=== PATIENT | female | born 1995 ===

== ENCOUNTER 2020-08-10 18:56 | Outpatient (REF) | payer MEDICAID, SELFPAY ==
--- NOTE | ~2020-08-10 | MR_ITS ---
EXAMINATION: MR LUMBAR SPINE WITHOUT CONTRAST CLINICAL INFORMATION: Lower back pain with bilateral leg pain and weakness. Left-sided sciatica. COMPARISON: Lumbar spine radiographs dated 09/10/2019. TECHNIQUE: MRI of the lumbar spine was obtained using routine sequences without contrast. FINDINGS: VERTEBRAL BODIES AND PARASPINAL STRUCTURES: Normal vertebral body alignment. The lumbar lordosis is maintained. No acute fracture or subluxation. No loss of vertebral body height. Loss of intervertebral disc height with disc desiccation at L5-S1. The remaining intervertebral discs appear well-hydrated. No abnormal marrow signal. The visualized paraspinal soft tissues are unremarkable. CONUS MEDULLARIS AND CAUDA EQUINA: Normal, terminating at the level of the superior endplate of L2. SPINAL LEVELS: T12-L1: No significant disc bulge. No central canal or neural foraminal stenosis. L1-L2: No significant disc bulge. No central canal or neural foraminal stenosis. L2-L3: No significant disc bulge. No central canal or neural foraminal stenosis. L3-L4: No significant disc bulge. Bilateral facet arthropathy. No central canal or neural foraminal stenosis. L4-L5: Shallow left subarticular disc protrusion and bilateral facet arthropathy without significant central canal or neural foraminal stenosis. L5-S1: Broad-based disc bulge with a shallow left paracentral disc protrusion which abuts the traversing left S1 nerve root within the lateral recess. Bilateral facet arthropathy with mild left neural foraminal stenosis. MR/MR lumbar spine wo con IMPRESSION: 1. Degenerative disc disease at L5-S1 with a broad-based disc bulge and shallow left paracentral disc protrusion which abuts the traversing left S1 nerve root within the lateral recess. Bilateral facet arthropathy with mild left neural foraminal stenosis. 2. L4-L5 shallow left subarticular disc protrusion and bilateral facet arthropathy without significant central canal or neural foraminal stenosis. 3. L3-L4 bilateral facet arthropathy without central canal or neural foraminal stenosis.
== END 2020-08-10 18:57 | disposition home or self-care (01) ==
LOC: HO.MRI 18:56
PROVIDERS: PCP Internal Medicine; Visit Provider Internal Medicine
DX: M54.42 Lumbago with sciatica, left side (principal)
CPT/HCPCS: 72148

== ENCOUNTER 2020-09-02 07:52 | Inpatient (IN) | payer MEDICAID, SELFPAY ==
--- NOTE | ~2020-09-02 | US_ITS ---
EXAMINATION: ULTRASOUND PELVIC, COMPLETE CLINICAL INFORMATION: Abdominal pain COMPARISON: CT of the abdomen and pelvis 09/02/2020 TECHNIQUE: Transabdominal and transvaginal imaging was performed. Transvaginal imaging was performed for further evaluation of the endometrium and adnexa. FINDINGS: The uterus is anteverted and is of normal size and echogenicity measuring 7.9 x 3.8 x 5.4 cm. A regular homogeneous endometrium is identified measuring 0.9 cm. There is a heterogeneous 1.3 x 2.1 x 1.8 cm heterogeneously hypoechoic lesion adjacent to the right aspect of the uterine fundus, also seen on the prior CT (series 5, image [address] 09/02/2020), that likely represents a subserosal fibroid. Both ovaries are of normal size and echogenicity. The right ovary measures 2.3 x 2.9 x 2 cm for a volume of 7 mL. The left ovary measures 3.7 x 1.4 x 2.3 cm for a volume of 6.1 mL. There is a small amount of pelvic free fluid. US/US transvaginal IMPRESSION: 2.1 cm soft tissue lesion adjacent to the right aspect of the uterine fundus, likely labor relations representative of an exophytic subserosal fibroid. Normal appearance of the bilateral ovaries. Trace free fluid in the pelvis, likely physiologic.
--- NOTE | ~2020-09-02 | US_ITS ---
EXAMINATION: ULTRASOUND PELVIC, COMPLETE CLINICAL INFORMATION: Abdominal pain COMPARISON: CT of the abdomen and pelvis 09/02/2020 TECHNIQUE: Transabdominal and transvaginal imaging was performed. Transvaginal imaging was performed for further evaluation of the endometrium and adnexa. FINDINGS: The uterus is anteverted and is of normal size and echogenicity measuring 7.9 x 3.8 x 5.4 cm. A regular homogeneous endometrium is identified measuring 0.9 cm. There is a heterogeneous 1.3 x 2.1 x 1.8 cm heterogeneously hypoechoic lesion adjacent to the right aspect of the uterine fundus, also seen on the prior CT (series 5, image [address] 09/02/2020), that likely represents a subserosal fibroid. Both ovaries are of normal size and echogenicity. The right ovary measures 2.3 x 2.9 x 2 cm for a volume of 7 mL. The left ovary measures 3.7 x 1.4 x 2.3 cm for a volume of 6.1 mL. There is a small amount of pelvic free fluid. US/US pelvic complete IMPRESSION: 2.1 cm soft tissue lesion adjacent to the right aspect of the uterine fundus, likely factory representative of an exophytic subserosal fibroid. Normal appearance of the bilateral ovaries. Trace free fluid in the pelvis, likely physiologic.
--- NOTE | ~2020-09-02 | CT_ITS ---
EXAMINATION: CT abdomen pelvis w con CLINICAL INFORMATION: Reason for Exam RUQ, RLQ pain rule out biliary disease, appendicitis COMPARISON: No prior CT available for comparison. TECHNIQUE: Multidetector volumetric imaging was performed from the superior aspect of the liver through the pubic symphysis 85 mL of Omnipaque 350 injected. Sagittal and coronal reformatted images were obtained on the technologist's workstation. This CT examination was performed using dose optimization techniques as appropriate, variously including the following: *Automated exposure control *Adjustment of mA and/or kV according to patient size (this includes techniques or standardized protocols for targeted exams where dose is matched to indication/reason for exam; i.e. extremities or head) *Use of iterative reconstruction technique DLP: 374 mGy-cm FINDINGS: LOWER THORAX: Included lung bases are clear. HEPATOBILIARY: Hypodense focal area of the left lobe of the liver segment 4 adjacent to the falciform ligament, the location is common for focal fat deposition. GALLBLADDER: Gallbladder unremarkable. SPLEEN: Spleen is normal in size. PANCREAS: No focal mass or ductal dilatation. STOMACH AND GASTROINTESTINAL TRACT: Stomach is grossly unremarkable. No CT evidence of bowel obstruction. Appendix difficult to visualize due to crowding of bowel loops and possibly of intraperitoneal fat, there is a blind loop structure in the right lower quadrant which could be a dilated appendix, there is a free fluid in the pelvis and mild fat stranding, cannot rule out appendicitis. Adjacent borderline dilated the small bowel loops might be regional ileus. ADRENALS: No adrenal nodules. KIDNEYS/URETERS: No hydronephrosis, stones or solid mass lesions. URINARY BLADDER: Partially decompressed. PELVIC VISCERA: Unremarkable PERITONEUM: There is no free air, there is a fluid in the dependent portion of the pelvis. LYMPH NODES: No lymphadenopathy. VASCULAR:Abdominal aorta normal in size, no aneurysm found. BONES, ABDOMINAL WALL AND SOFT TISSUES: Age-appropriate changes of the spine and skeletal system, no destructive osteolytic or osteosclerotic bone lesion found CT/CT abdomen pelvis w con IMPRESSION: CT is abnormal, appendix difficult to visualize with certainty due to crowding of bowel loops and paucity of intraperitoneal fat, there is however suspicion for mildly dilated appendix, this combined with the presence of free fluid in the pelvis, mild fat stranding and few borderline dilated small bowel loops could be regional ileus, raising concern, cannot rule out appendicitis. SURGICAL EVALUATION IS WARRANTED. (Referring physician staff is being called, to be alerted of the above findings and recommendations.) AJ
--- NOTE | ~2020-09-02 | US_ITS ---
EXAMINATION: US ABDOMEN COMPLETE CLINICAL INFORMATION: Upper abdominal pain. COMPARISON: CT abdomen and pelvis with contrast dated 01/30/2021. TECHNIQUE: Real-time imaging of the abdominal viscera. FINDINGS: PANCREAS: Not well visualized due to bowel gas. ABDOMINAL AORTA: The proximal, mid, and distal segments are normal in caliber. INFERIOR VENA CAVA: Visualized portions are normal. LIVER: Normal. The liver is normal in size. The liver contour is normal. Parenchymal echogenicity is normal. No focal hepatic lesion. There is no intrahepatic biliary duct dilatation seen. GALLBLADDER: Normal. The gallbladder is physiologically distended without evidence of stones, sludge, wall thickening or pericholecystic fluid. COMMON BILE DUCT: Normal in caliber measuring 0.3 cm in diameter. RIGHT KIDNEY: Normal. No hydronephrosis. No renal calculi or focal parenchymal lesions. The kidney measures 11.2 cm in maximum dimension. LEFT KIDNEY: Normal. No hydronephrosis. No renal calculi or focal parenchymal lesions. The kidney measures 10.6 cm in maximum dimension. SPLEEN: Normal. The spleen measures 9.6 cm in maximum dimension. FREE FLUID: None. US/US abdomen complete IMPRESSION: Limited visualization of the pancreas otherwise unremarkable exam.
--- NOTE | ~2020-09-02 | XR_ITS ---
EXAMINATION: XR CHEST CLINICAL INFORMATION: Right-sided pleuritic chest pain. Rule out pneumonia. COMPARISON: 06/11/2019 TECHNIQUE: 2 views of the chest were obtained. FINDINGS: The cardiomediastinal silhouette is within normal limits. The lungs are well expanded. There is no focal consolidation, edema, or effusion. No pneumothorax. No acute osseous abnormality. XR/XR chest 2V IMPRESSION: No evidence of acute process.
[2020-09-02 08:11] VITALS: BP 110/64; PULSE 91; RESP 18; TEMP 37.1; O2SAT 100; BMI 22.6
--- NOTE | 2020-09-02 08:28 | ED.GENADULT ---
HPI - General Adult General Chief complaint: Abdominal Pain Stated complaint: abd pain Time Seen by Provider: 09/02/20 08:10 Source: patient Mode of arrival: ambulatory Limitations: no limitations History of Present Illness HPI narrative: 25-year-old female who presents emergency department for evaluation of right-sided abdominal pain. Patient states that approximately 2 weeks prior she had a very bad menstrual period with severe cramping and more bleeding than usual. She states that while she was having her menstrual. She developed right upper quadrant abdominal pain. She states that her cramping pain improved but her right upper quadrant pain has persisted. She describes the pain as a constant, sharp pain as if someone punched her in her right upper quadrant area. She states the pain gets worse if she walks or she takes a deep breath in. Pain does not change with food. She states the pain is 10/10. She denied associated nausea or vomiting. She denied fever. She states that over the last 1-2 days she has had chills and sweats at night. The patient does have tramadol at home for back pain and she took tramadol with no relief of her abdominal pain. The patient denies any surgical history. She has been having lower back pain and had an MRI on 08/10/2020 which revealed bulging discs at L4-L5 and L5-S1 with some arthritic changes. She states that she spoke to a neurosurgeon and the neurosurgeon's opinion was that these were non operable discs and the patient should follow-up with her PCP for further back pain management. The patient states that her back pain has significantly improved. Related Data Allergies Allergy/AdvReac Type Severity Reaction Status Date / Time aloe vera [Flexall] Allergy Unknown Verified 06/11/19 00:00 cyclobenzaprine Allergy Unknown RASH Unverified 03/23/20 19:43 [From FLEXERIL] menthol [Flexall] Allergy Unknown Verified 06/11/19 00:00 penicillin V Allergy Unknown Verified 06/11/19 00:00 Penicillins [PENICILLINS] Allergy Unknown RASH Unverified 03/23/20 19:43 vitamin E (d-alpha Allergy Unknown Verified 06/11/19 00:00 tocopherol) [Flexall] Review of Systems Review of Systems: Yes all other systems are reviewed and are negative Neurologic: Reports Abnormal speech present [facility] Past Medical History [facility] Narrative: GERD, asthma, hiatal hernia, back pain with non operable L4-L5 and L5-S1 disc bulging. The patient does smoke a quarter pack of cigarettes per day x9 years, she drinks alcohol occasionally, she smokes marijuana 2 to 3 times a day. She states that she is treating a mood disorder with her marijuana use. Medical History (Updated 09/02/20 @ 08:16 by Taylor Polanco) Acid reflux Asthma Bulging disc Hiatal hernia Social History Social History Smoking Status: Current every day smoker Use of substances other than those prescribed or required for medical reasons: Yes Substance Use Type: Marijuana Advance Directives: No Advance Directives Information Provided: No Physical Exam Vital Signs: Vital Signs: Last Vital Signs Temp 98.1 F 09/02/20 09:55 Pulse 73 09/02/20 09:55 Resp 16 09/02/20 09:55 BP 113/71 09/02/20 09:55 Pulse Ox 100 09/02/20 09:55 Body Mass Index 22.6 Const: General: cooperative and healthy appearing Orientation/consciousness: oriented to person and oriented to place Limitations: no limitations HENMT: Head: Yes normal to inspection, Yes normocephalic and Yes atraumatic Ears: external ears normal General nose exam: Normal external nose present Face and sinus: Yes normal facial exam Mouth: Normal oral and palatal mucosa present Throat: Yes posterior oropharynx normal Eyes: Periorbital: periorbital findings normal Eyelids: Yes eyelids normal Conjunctivae: conjunctivae normal Sclerae: sclerae normal Corneas: corneas normal Pupils: Equal, round and reactive pupils present Direct Ophthalmoscopy: normal light reflex Neck: Neck: Yes full ROM, Yes no lymphadenopathy, Yes no meningeal signs, Yes trachea midline and Yes supple Chest: Chest palpation & inspection: normal inspection of the chest and normal palpation of entire chest wall Resp: Effort & Inspection: normal respiratory effort and able to speak in complete sentences Auscultation: clear to auscultation bilaterally Cardio: Rate: regular rate Rhythm: regular rhythm Heart sounds: S1 normal heart sound present, S2 normal heart sound present and no murmurs GI: Inspection: Yes normal to inspection Palpation (GI): Soft to palpation, Tenderness to palpation present (GI) in the epigastrum (Mild), in the RLQ (Moderate) and in the RUQ ([id number], negative Duncan sign), no guarding, not rigid and No hepatosplenomegaly present : General: Yes no CVA tenderness Back/Spine/Pelvis: Back: no CVA tenderness Cervical Spine: normal cervical lordosis Thoracic/Lumbar Spine: thoracic and lumbar spine normal to inspection Skin: Lesions: no lesions Rashes: no rashes Wounds: no wounds Neuro: General: oriented to person, oriented to place and no meningeal signs Cranial nerves: Yes CN's II-XII intact bilaterally and Yes Equal, round and reactive pupils present Cognition (Neuro): normal cognition Speech: Abnormal speech present Motor exam (neuro): 5/5 motor strength present throughout Extrem: General: Yes normal to inspection and Yes full ROM Psych: Appearance: well kempt Mental Status: mental status grossly normal Speech and movement: Normal speech and movement present Affect: normal affect Attitude: cooperative Thought process: Normal thought process present Thought content: Normal thought content present Course Course Course Narrative: 25-year-old female with 2 week history of of right-sided abdominal pain which is worse with movement and with breathing. Physical examination revealed normal vital signs. Examination did reveal right upper quadrant, epigastric and right lower quadrant tenderness. Lung exam was clear. The patient did describe a pleuritic component to her pain but she is PERC negative and I do not think that a PE is the cause of her symptoms. I did do an abdominal workup on this patient to include CT scan of the abdomen pelvis with IV contrast. The patient was ordered to get Toradol 30 mg IV for her pain and Zofran 4 mg IV. Was also treated with normal saline x1 2048: The patient's laboratory evaluation was unremarkable with a normal WBC and mild anemia with an H&H of 11.3 and 33.5. The patient's CT scan was equivocal secondary to increased gas pattern however the radiologist is concerned that the patient has a mildly dilated appendix with free fluid and fat stranding which could be consistent with acute appendicitis. On re-examination the patient does have referred pain with palpation of the left lower quadrant with increased right lower quadrant pain. I did consult Dr. Yost who evaluated the patient in the emergency department. He he will admit the patient for observation. Medical Decision Making Lab Data Result diagrams: 09/02/20 08:39 09/02/20 08:39 Labs: Lab Results 09/02/20 09/02/20 09/02/20 Range/Units 08:39 08:39 09:57 WBC 7.8 (4.8-10.8) X10*3/uL RBC 3.43 L (4.20-5.50) X10*6/uL Hgb 11.3 L (12.0-16.0) g/dl Hct 33.5 L (37-47) % MCV 97.7 (80-98) fL MCH 32.9 (27.0-33.0) pg MCHC 33.7 (31.0-35.0) g/dl RDW 13.0 (11.0-16.0) % Plt Count 284 (160-400) X10*3/uL MPV 9.4 (9.4-12.3) fL Immature Gran % (Auto) 0.4 (0.0-0.4) % Neut % (Auto) 72.8 (45-73) % Lymph % (Auto) 14.2 L (20-40) % [place] % (Auto) 11.1 H (2-11) % Eos % (Auto) 1.1 (0-4) % Baso % (Auto) 0.4 (0-2) % Lymph # (Auto) 1.1 L (1.2-4.9) X10*3/uL [place] # (Auto) 0.9 (0.1-1.2) X10*3/uL Eos # (Auto) 0.1 (0.0-0.4) X10*3/uL Baso # (Auto) 0.0 (0.0-0.2) X10*3/uL Abs Immat Gran (auto) 0.03 (0.00-0.03) X10*3/uL Absolute Neuts (auto) 5.7 (2.0-8.3) X10*3/uL Absolute Nucleated RBC 0.000 (0.0-0.012) X10*3/uL Nucleated RBC % (auto) 0.0 (0.0-0.2) /100WBC Sodium 138 (135-145) mmol/L Potassium 4.1 (3.3-5.1) mmol/L Chloride 108 (96-108) mmol/L Carbon Dioxide 23 (22-29) mmol/L Anion Gap 11 L (12-20) BUN 11 (9-16) mg/dL Creatinine 0.62 (0.5-1.4) mg/dL Estim Creat Clear Calc 127.6 Estimated GFR > 60 Random Glucose 103 (60-115) mg/dL Calcium 7.8 L (8.4-10.2) mg/dL Total Bilirubin 0.3 (0.0-1.0) mg/dL AST 12 (5-31) U/L ALT 6 (0-31) U/L Alkaline Phosphatase 39 (39-117) U/L Total Protein 6.1 L (6.5-8.0) g/dL Albumin 3.5 (3.5-5.0) g/dL Lipase 20 (8-78) U/L Urine Color YELLOW Urine Appearance HAZY Urine pH 7.0 (5.0-8.0) Ur Specific [place] 1.020 (1.005-1.025) Urine Protein NEG (NEG-TRACE) MG/DL Urine Glucose (UA) NEG (NEG) MG/DL Urine Ketones NEG (NEG) MG/DL Urine Blood 2+ H (NEG) Urine Nitrite NEG (NEG) Ur Leukocyte Esterase TRACE H (NEG) Urine RBC 1-4 (0) /HPF Urine WBC 15-29 H (0-4) /HPF Ur Squamous Epith Cells 2+ /LPF Amorphous Sediment 2+ /LPF Urine Bacteria TRACE /LPF Urine Mucus 2+ /LPF Urine Test (NEGATIVE) 09/02/20 Range/Units 09:57 WBC (4.8-10.8) X10*3/uL RBC (4.20-5.50) X10*6/uL Hgb (12.0-16.0) g/dl Hct (37-47) % MCV (80-98) fL MCH (27.0-33.0) pg MCHC (31.0-35.0) g/dl RDW (11.0-16.0) % Plt Count (160-400) X10*3/uL MPV (9.4-12.3) fL Immature Gran % (Auto) (0.0-0.4) % Neut % (Auto) (45-73) % Lymph % (Auto) (20-40) % [place] % (Auto) (2-11) % Eos % (Auto) (0-4) % Baso % (Auto) (0-2) % Lymph # (Auto) (1.2-4.9) X10*3/uL [place] # (Auto) (0.1-1.2) X10*3/uL Eos # (Auto) (0.0-0.4) X10*3/uL Baso # (Auto) (0.0-0.2) X10*3/uL Abs Immat Gran (auto) (0.00-0.03) X10*3/uL Absolute Neuts (auto) (2.0-8.3) X10*3/uL Absolute Nucleated RBC (0.0-0.012) X10*3/uL Nucleated RBC % (auto) (0.0-0.2) /100WBC Sodium (135-145) mmol/L Potassium (3.3-5.1) mmol/L Chloride (96-108) mmol/L Carbon Dioxide (22-29) mmol/L Anion Gap (12-20) BUN (9-16) mg/dL Creatinine (0.5-1.4) mg/dL Estim Creat Clear Calc Estimated GFR Random Glucose (60-115) mg/dL Calcium (8.4-10.2) mg/dL Total Bilirubin (0.0-1.0) mg/dL AST (5-31) U/L ALT (0-31) U/L Alkaline Phosphatase (39-117) U/L Total Protein (6.5-8.0) g/dL Albumin (3.5-5.0) g/dL Lipase (8-78) U/L Urine Color Urine Appearance Urine pH (5.0-8.0) Ur Specific [place] (1.005-1.025) Urine Protein (NEG-TRACE) MG/DL Urine Glucose (UA) (NEG) MG/DL Urine Ketones (NEG) MG/DL Urine Blood (NEG) Urine Nitrite (NEG) Ur Leukocyte Esterase (NEG) Urine RBC (0) /HPF Urine WBC (0-4) /HPF Ur Squamous Epith Cells /LPF Amorphous Sediment /LPF Urine Bacteria /LPF Urine Mucus /LPF Urine Test NEGATIVE (NEGATIVE)
[2020-09-02 08:45] LABS: MANUAL DIFF FLAG NO
[2020-09-02 08:47] LABS: Basophils Percent Auto 0.4 % (0-2); Eosinophils Absolute Auto 0.1 X10*3/uL (0.0-0.4); Eosinophils Percent Auto 1.1 % (0-4); Hematocrit 33.5 % (37-47); Hemoglobin 11.3 g/dl (12.0-16.0); Imm Gran Abs Auto 0.03 X10*3/uL (0.00-0.03); Imm Gran Pct Auto 0.4 % (0.0-0.4); Lymphocytes Absolute Auto 1.1 X10*3/uL (1.2-4.9); Lymphocytes Percent Auto 14.2 % (20-40); Mean Corpuscular HGB Conc 33.7 g/dl (31.0-35.0); Mean Corpuscular Hemoglobin 32.9 pg (27.0-33.0); Mean Corpuscular Volume 97.7 fL (80-98); Mean Platelet Volume 9.4 fL (9.4-12.3); Monocytes Absolute Auto 0.9 X10*3/uL (0.1-1.2); Monocytes Percent Auto 11.1 % (2-11); Neutrophils Absolute Auto 5.7 X10*3/uL (2.0-8.3); Neutrophils Percent Auto 72.8 % (45-73); Platelet Count 284 X10*3/uL (160-400); Red Blood Count 3.43 X10*6/uL (4.20-5.50); White Blood Count 7.8 X10*3/uL (4.8-10.8)
[2020-09-02] MEDS: ondansetron HCL 4 MG/2 ML VIAL IVPUSH (08:51)
[2020-09-02] MEDS: Ketorolac Tromethamine 30 MG/ML VIAL IVPUSH (08:51)
[2020-09-02] MEDS: 0.9 % Sodium Chloride 1,000 ML 999 ML IV (08:51)
[2020-09-02 09:25] LABS: Albumin Level 3.5 g/dL (3.5-5.0); Alkaline Phosphatase 39 U/L (39-117); Anion Gap 11 (12-20); Aspartate Amino Transferase 12 U/L (5-31); Bilirubin Total 0.3 mg/dL (0.0-1.0); Blood Urea Nitrogen 11 mg/dL (9-16); Calcium 7.8 mg/dL (8.4-10.2); Carbon Dioxide 23 mmol/L (22-29); Chloride 108 mmol/L (96-108); Creatinine Clr Calc Pharmacy 127.6; Estimated Glomerular Filt Rate > 60; Glucose Random 103 mg/dL (60-115); Lipase 20 U/L (8-78); Potassium 4.1 mmol/L (3.3-5.1); Sodium 138 mmol/L (135-145); Total Protein 6.1 g/dL (6.5-8.0)
[2020-09-02 09:37] LABS: Alanine Aminotransferase 6 U/L (0-31)
[2020-09-02 09:55] VITALS: BP 113/71; PULSE 73; RESP 16; TEMP 36.7; O2SAT 100
[2020-09-02 10:19] LABS: Glucose Urine UA NEG (NEG); Leukocyte Esterase Urine TRACE (NEG); Nitrite Urine NEG (NEG); Urine Blood 2+ (NEG); Urine Ketones NEG (NEG); Urine Protein NEG (NEG-TRACE)
[2020-09-02 10:23] LABS: Appearance Urine HAZY; Color Urine YELLOW; UACC Culture Trigger YES; UPreg QC Valid A; Urine Pregnancy NEGATIVE (NEGATIVE)
[2020-09-02 10:27] LABS: Amorphous Sediment Urine 2+ /LPF; Bacteria Urine TRACE /LPF; Mucus Urine 2+ /LPF; Squamous Epithelial Cell Urine 2+ /LPF
--- NOTE | 2020-09-02 13:11 | PM.HPGS ---
History of Present Illness History of Present Illness Date of Service: 09/03/20 Chief complaint: Abdominal pain Narrative: Becca Lu is a 25 year old female seen in the ED for abdominal pain. She says she has had is pain for over 2 weeks now. She says this is mostly around her mid abdomen, and pointed to the area around the umbilicus. She says she thought that the pain was related to her mentrual period 2 weeks ago, but this had persisted that was why she came to the ED. She says the pain has remained the same the past 2 weeks. She denies any nausea, vomitting or fever. She denies diarrhea or constipation. She admits to being sexually active with one partner. She denies vaginal discharge. She denies urinary complaints. Review of Systems Constitutional: Constitutional: Denies chills and Denies fever(s) Cardiovascular: Cardiovascular: Denies chest pain, Denies dyspnea and Denies dyspnea on exertion Respiratory: Respiratory: Denies cough, Denies dyspnea and Denies dyspnea on exertion Gastrointestinal: Gastrointestinal: Denies hematochezia and Denies change in bowel habits Genitourinary: Genitourinary: Denies hematuria Musculoskeletal: Musculoskeletal: Denies back pain and Denies limited range of motion Neurologic: Denies focal weakness and Denies convulsions Psychiatric: Psychiatric: Denies depression and Denies mood swings PMFSH Past Medical History Medical History (Updated 09/03/20 @ 10:38 by Miguel Yost MD) Acid reflux Asthma Bulging disc Hiatal hernia Smoker Urinary tract infection Social History Social History Do you presently have visiting nurse or other home services: No Smoking Status: Current every day smoker Tobacco Type: Cigarette Smoked in Last 30 Days: Yes Patient Interested in Nicotine Replacement: Yes Patient Given Instructions on How to Stop Smoking: Yes Date Education Initiated: 09/03/20 Second Hand Smoke Exposure: No Use of substances other than those prescribed or required for medical reasons: Yes Substance Use Type: Marijuana Substance Use Frequency: Daily Last Used Substance: Unknown Currently Displaying Signs/Symptoms of Drug Intoxication Withdrawal: No Any prior treatment program specific to substance use: No Have you been hit, kicked, punched, or otherwise hurt by someone within the past year? If so, by whom?: No Do you feel safe in your current relationship?: No Is there a partner from a previous relationship who is making you feel unsafe now?: No Are you made to feel afraid or neglected: No Advance Directives: No Advance Directives Information Provided: No Advance Directives on File: No Do you have thoughts of harming others: None Do you have a plan to hurt others: No Plan Recently lost weight without trying: No Meds Allergies Allergy/AdvReac Type Severity Reaction Status Date / Time aloe vera [Flexall] Allergy Unknown Verified 06/11/19 00:00 cyclobenzaprine Allergy Unknown RASH Unverified 03/23/20 19:43 [From FLEXERIL] menthol [Flexall] Allergy Unknown Verified 06/11/19 00:00 penicillin V Allergy Unknown Verified 06/11/19 00:00 Penicillins [PENICILLINS] Allergy Unknown RASH Unverified 03/23/20 19:43 vitamin E (d-alpha Allergy Unknown Verified 06/11/19 00:00 tocopherol) [Flexall] Home Medications Medication Instructions Recorded Confirmed Last Taken Type No Known Home Meds 09/02/20 09/02/20 Unknown History Physical Exam Vital Signs: Vital Signs: Last Vital Signs Temp 98.1 F 09/02/20 09:55 Pulse 73 09/02/20 09:55 Resp 16 09/02/20 09:55 BP 113/71 09/02/20 09:55 Pulse Ox 100 09/02/20 09:55 Body Mass Index 22.6 Const: General: comfortable and no acute distress Orientation/consciousness: patient oriented x3 Neck: Neck: Yes no lymphadenopathy Resp: Auscultation: clear to auscultation bilaterally Cardio: Rhythm: regular rhythm GI: Other: tender to deep palpation mostly on the midabdomen and to the entire right side, no guarding or rebound. Palpation (GI): Soft to palpation and no guarding Neuro: General: patient oriented x3 Results Results Labs: Short CBC 09/02/20 Range/Units 08:39 WBC 7.8 (4.8-10.8) X10*3/uL Hgb 11.3 L (12.0-16.0) g/dl Hct 33.5 L (37-47) % Plt Count 284 (160-400) X10*3/uL BMP 09/02/20 08:39 Sodium 138 Potassium 4.1 Chloride 108 Carbon Dioxide 23 BUN 11 Creatinine 0.62 Calcium 7.8 L Liver Function 09/02/20 Range/Units 08:39 Total Bilirubin 0.3 (0.0-1.0) mg/dL AST 12 (5-31) U/L ALT 6 (0-31) U/L Alkaline Phosphatase 39 (39-117) U/L Albumin 3.5 (3.5-5.0) g/dL Urine 09/02/20 09/02/20 Range/Units 09:57 09:57 Urine Color YELLOW Urine Appearance HAZY Urine pH 7.0 (5.0-8.0) Ur Specific [place] 1.020 (1.005-1.025) Urine Protein NEG (NEG-TRACE) MG/DL Urine Glucose (UA) NEG (NEG) MG/DL Urine Test NEGATIVE (NEGATIVE) Abdomen CT scan report/results: report reviewed and image reviewed Assessment and Plan (1) Abdominal pain: Qualifiers: Abdominal location: right lower quadrant Qualified Code(s): R10.31 - Right lower quadrant pain Status: Acute She has abnormal CT findings wtih some mild fat stranding in the lower abdomen, mild dilatation of the small bowel loops, and question of dilated appendix and some free fluid in the pelvis.. Her overall clinical picture is not c/w acute appendicitis. She has has mild-moderate intensity pain x 2 weeks, without other GI complaints. She has no leukocytosis, and her exam is very benign. With the uncertain of the etiology, I will admit her. She will stay on clear liquids for now. I do not see any obvious gynecologic pathology but will plan on sending her for a pelvic US. ]I will follow her CBC as well. I explained the above to the patient. She otherwise has a very benign exam. Case was d/w with the ED staff. Procedures Date of Service Date of Service: 09/02/20
[2020-09-02 13:39] VITALS: BP 110/62; PULSE 72; RESP 16; TEMP 37.1; O2SAT 99
[2020-09-02] MEDS: Morphine Sulfate 4 MG/ML CARTRIDGE IVPUSH (13:41)
[2020-09-02] MEDS: Lactated Ringers 500 ML 80 ML IV (13:49)
[2020-09-02] MEDS: Nicotine 7 MG PATCH.TD24 TRANSDERMA (15:08)
[2020-09-02 16:53] LABS: COVID-19 Test Negative (Negative)
[2020-09-02 18:16] VITALS: BP 99/55; PULSE 75; RESP 14; TEMP 36.9; O2SAT 100
[2020-09-02] MEDS: oxyCODONE HCl Immed Release 5 MG TABLET PO (18:19)
--- NOTE | 2020-09-02 21:56 | PC.NURSE ---
PT RESTING IN STRETCHER WITH EYES CLOSED. PT DENIES ANY COMPLAINTS WITH SOME ABD PAIN RATING PAIN 5/10. FLUIDS INFUSED W/O DIFFICULTY. SITE INTACT. WILL CONTINUE TO MONITOR PT.
--- NOTE | 2020-09-02 22:14 | PC.NURSE ---
PT UP TO RESTROOM WITH STEADY EVEN GAIT. PT C/O ABD PAIN RATING PAIN 7/10. WILL CONTINUE TO MONITOR PT'S PAIN LEVEL.
[2020-09-02] MEDS: Morphine Sulfate 2 MG/ML CARTRIDGE IVPUSH (22:57)
[2020-09-03] VITALS (8 sets, daily range): BP systolic 94–125; BP diastolic 50–72; PULSE 71–96; RESP 16–18; TEMP 36.5–37.3; O2SAT 99–100
--- NOTE | 2020-09-03 00:25 | PC.NURSE ---
REPORT TO CASSANDRA GIBSON. PT TO FLOOR IN IN STRETCHER. PT LEFT ED IN NAD.
--- NOTE | 2020-09-03 00:52 | PC.NURSE ---
REPORT GIVEN TO CASSANDRA GIBSON. PT TO FLOOR IN W/C IN NAD.
[2020-09-03] MEDS: oxyCODONE HCl Immed Release 5 MG TABLET PO ×4 (01:01→23:13)
[2020-09-03] MEDS: 0.9 % Sodium Chloride Flush 3 ML SYRINGE IVFLUSH ×2 (01:04→08:53)
[2020-09-03] MEDS: Morphine Sulfate 2 MG/ML CARTRIDGE IVPUSH ×2 (06:13→12:45)
[2020-09-03 07:09] LABS: Hematocrit 33.3 % (37-47); Hemoglobin 11.2 g/dl (12.0-16.0); Mean Corpuscular HGB Conc 33.6 g/dl (31.0-35.0); Mean Corpuscular Hemoglobin 32.9 pg (27.0-33.0); Mean Corpuscular Volume 97.9 fL (80-98); Mean Platelet Volume 9.6 fL (9.4-12.3); Platelet Count 327 X10*3/uL (160-400); White Blood Count 7.5 X10*3/uL (4.8-10.8)
[2020-09-03 07:45] LABS: Blood Urea Nitrogen 6 mg/dL (9-16); Calcium 7.8 mg/dL (8.4-10.2); Creatinine Clr Calc Pharmacy 131.8; Estimated Glomerular Filt Rate > 60; Glucose Random 88 mg/dL (60-115)
[2020-09-03 07:55] LABS: Anion Gap 10 (12-20); Carbon Dioxide 24 mmol/L (22-29); Chloride 108 mmol/L (96-108); Potassium 4.3 mmol/L (3.3-5.1); Sodium 138 mmol/L (135-145)
[2020-09-03] MEDS: Lactated Ringers 500 ML 80 ML IV (08:52)
--- NOTE | 2020-09-03 10:35 | P.PNGS_ITS ---
Subjective Subjective Date of Service: 09/03/20 Interval history: now says her pain in mostly upper abdomen no N/V no events reported Physical Exam Vital Signs: Vital Signs: Last Vital Signs Temp 99.2 F 09/03/20 07:43 Pulse 78 09/03/20 07:43 Resp 18 09/03/20 07:43 BP 111/60 09/03/20 07:43 Pulse Ox 99 09/03/20 07:43 Body Mass Index 22.6 Chemistry 09/02/20 09/03/20 08:39 05:46 Sodium 138 138 Potassium 4.1 4.3 Carbon Dioxide 23 24 BUN 11 6 L Creatinine 0.62 0.60 Calcium 7.8 L 7.8 L Hematology 09/02/20 09/03/20 08:39 05:46 WBC 7.8 7.5 Hgb 11.3 L 11.2 L Plt Count 284 327 Urinalysis 09/02/20 09:57 Urine Color YELLOW Urine Appearance HAZY Urine pH 7.0 Ur Specific Gravit y 1.020 Urine Protein NEG Urine Glucose (UA) NEG Urine Ketones NEG Urine Blood 2+ H Urine Nitrite NEG Ur Leukocyte Alison ase TRACE H Urine RBC 1-4 Urine WBC 15-29 H Ur Squamous Epith Cells 2+ Const: Other: c/o pain General: no acute distress Resp: Effort & Inspection: normal respiratory effort Cardio: Rhythm: regular rhythm GI: Other: Soft, nondistended, no guarding rebound, she does complain of vague tenderness on palpation of the upper abdomen Progress Note: A&P Assessment and plan (1) Abdominal pain: Status: Acute Assessment and Plan: She states her pain is upper abdomen She describes her pain yesterday as mostly in the lower abdomen times more than 2 weeks Exam is very benign I have reviewed her CAT scan images and there is no other allergy seen aside from question of stranding in lower abdomen, crowding of small bowel loops Clinically not acute appendicitis - currently not tender there to quadrant White count is normal Will treat UTI for now Okay to have clear liquids (2) Urinary tract infection: Problem details: Start Bactrim Status: Acute Fall Risk Details Current Medications: Current Medications Generic Name Dose Route Start Last Admin Trade Name Freq PRN Reason Stop Dose Admin Lactated Ringer's 500 mls @ 80 mls/hr 09/03/20 08:45 09/03/20 08:52 Lr IV 09/03/20 14:59 80 mls/hr .Q6H15M KALEB Administration Morphine Sulfate 2 mg 09/02/20 13:35 09/03/20 06:13 Morphine Sulfate 2 Mg/Ml Cartridge IVPUSH 2 mg Q4H PRN Administration Chest Pain Nicotine 7 mg 09/03/20 09:00 09/02/20 15:08 Nicotine 7 Mg Patch.Td24 TRANSDERMA 7 mg DAILY KALEB Administration Ondansetron HCl 4 mg 09/02/20 13:37 Ondansetron Hcl 4 Mg/2 Ml Vial IVPUSH Q8H PRN nausea' Oxycodone HCl 5 mg 09/02/20 13:35 09/03/20 08:58 Oxycodone Hcl Immed Release 5 Mg Tablet PO 5 mg Q6H PRN Administration Pain, Moderate (Pain Scale 4-6 Sodium Chloride 3 ml 09/02/20 16:00 09/03/20 08:53 0.9 % Sodium Chloride Flush 3 Ml Syringe IVFLUSH 3 ml QSHIFT KALEB Administration Trimethoprim/Sulfamethoxazole 1 tab 09/03/20 10:00 Sulfamethox/Trimeth 800/160 1 Tab Tablet PO Q12H [facility] Time Spent With Patient Time: Total time spent is greater than 50% in coordination of care (as documented) at patient's floor/unit and/or counseling patient: Time with patient: 15 - 24 minutes Procedures Date of Service Date of Service: 09/03/20
--- NOTE | 2020-09-03 16:32 | PM.EVENT ---
Event Note Date of Service: 09/03/20 Event Note: pt seen in afternoon rounds she says she is frustrated - says she continues to have pain on the upper abdomen under the last rib examination shows point tenderness on the lower ribs no Duncan's sign abd remains soft, no guarding or rebound she was also frustrated and unhappy that she was getting various information in the ED I therefore had a long discussion with her; I reviewed with all her imaging studies and tests one by one with the computer screen I explained to her I am treating her for a UTI in view of UA clinically, she does not have appendicitis she is not tender at all on the lower abdomen I am ordering an US to reevaluate her liver/GB exam is suggestive of costochondritis as well I assured her that as long as she does not feel ready to be discharged, we will keep her and continue to workup to her satisfaction she was eventually happy with the discussion nurse Delfina was with us to help explain issues to her
--- NOTE | 2020-09-03 16:50 | MHC.CM.PN ---
PT LIVES WITH HER SISTER AND IS INDEPENDENT WITH ALL CARE. PT HAS NO DME AND NO IN HOME SERVICES. SHE REPORTS SEEING A MH THERAPIST WEEKLY. PT IS INTERESTED IN COMPLETING A HCP NAMING HER FATHER, CLAY PYLE HER AGENT. PT SLEEPING AND WILL COMPLETE IT TOMORROW CURRENT DCP IS HOME WITH NO SERVICES PT HAS A RIDE
[2020-09-04] VITALS (9 sets, daily range): BP systolic 100–122; BP diastolic 44–63; PULSE 83–100; RESP 14–20; TEMP 36.3–36.8; O2SAT 98–100
[2020-09-04] MEDS: 0.9 % Sodium Chloride Flush 3 ML SYRINGE IVFLUSH ×3 (01:06→23:37)
[2020-09-04] MEDS: oxyCODONE HCl Immed Release 5 MG TABLET PO ×2 (06:25→17:05)
--- NOTE | 2020-09-04 06:30 | PC.NURSE ---
Assessed patient's pain at 0620, she stated her stomach and ribs feel a little better. She said the pain was more tolerable, but was still under her right rib. Pt stated it felt like gas pain. Requested oxycodone for 5/10 pain.
[2020-09-04] MEDS: Nicotine 7 MG PATCH.TD24 TRANSDERMA (10:45)
--- NOTE | 2020-09-04 10:56 | PM.PNGS ---
Subjective Subjective Date of Service: 09/04/20 Interval history: She states that her pain now is on the right pelvic area She denies any nausea or vomiting She is tolerating regular diet and does not seem to have GI complaints. She also says that she saw blood in her urine earlier She also mentioned that recalls having some blood from her vagina the past few weeks. Physical Exam Vital Signs: Vital Signs: Last Vital Signs Temp 98.1 F 09/04/20 07:03 Pulse 85 09/04/20 07:03 Resp 14 09/04/20 07:03 BP 109/63 09/04/20 07:03 Pulse Ox 98 09/04/20 07:03 Body Mass Index 22.6 Chemistry 09/02/20 09/03/20 08:39 05:46 Sodium 138 138 Potassium 4.1 4.3 Carbon Dioxide 23 24 BUN 11 6 L Creatinine 0.62 0.60 Calcium 7.8 L 7.8 L Hematology 09/02/20 09/03/20 08:39 05:46 WBC 7.8 7.5 Hgb 11.3 L 11.2 L Plt Count 284 327 Urinalysis 09/02/20 09:57 Urine Color YELLOW Urine Appearance HAZY Urine pH 7.0 Ur Specific Gravit y 1.020 Urine Protein NEG Urine Glucose (UA) NEG Urine Ketones NEG Urine Blood 2+ H Urine Nitrite NEG Ur Leukocyte Alison ase TRACE H Urine RBC 1-4 Urine WBC 15-29 H Ur Squamous Epith Cells 2+ Const: General: comfortable and no acute distress Resp: Effort & Inspection: normal respiratory effort Cardio: Rate: regular rate GI: Other: Soft, no guarding or rebound, vague tenderness on the right pelvic area, no Duncan's sign, no right upper quadrant tenderness Progress Note: A&P Assessment and plan (1) Abdominal pain: Status: Acute Assessment and Plan: She continues to have a very benign exam Her pain is no on the right pelvic area I had a long discussion with the radiologist Dr. Munoz as we reviewed all her imaging studies She does not feel that there is any ongoing inflammatory process in the abdomen There is however a vague abnormal finding on the right side of the uterus It is recommended that she undergo urine test I will consult grant coordinator for this as well I explained the above to the patient Fall Risk Details Current Medications: Current Medications Generic Name Dose Route Start Last Admin Trade Name Freq PRN Reason Stop Dose Admin Nicotine 7 mg 09/03/20 09:00 09/04/20 10:45 Nicotine 7 Mg Patch.Td24 TRANSDERMA 7 mg DAILY KALEB Administration Ondansetron HCl 4 mg 09/02/20 13:37 Ondansetron Hcl 4 Mg/2 Ml Vial IVPUSH Q8H PRN nausea' Oxycodone HCl 5 mg 09/02/20 13:35 09/04/20 06:25 Oxycodone Hcl Immed Release 5 Mg Tablet PO 5 mg Q6H PRN Administration Pain, Moderate (Pain Scale 4-6 Sodium Chloride 3 ml 09/02/20 16:00 09/04/20 09:52 0.9 % Sodium Chloride Flush 3 Ml Syringe IVFLUSH Not Given QSHIFT KALEB Trimethoprim/Sulfamethoxazole 1 tab 09/03/20 10:00 09/04/20 10:46 Sulfamethox/Trimeth 800/160 1 Tab Tablet PO 1 tab Q12H KALEB Administration Time Spent With Patient Time: Total time spent is greater than 50% in coordination of care (as documented) at patient's floor/unit and/or counseling patient: Time with patient: 15 - 24 minutes Procedures Date of Service Date of Service: 09/04/20
--- NOTE | 2020-09-04 11:00 | MHC.CM.PN ---
The goal for dc is for Patient to return home.Patient had an abdominal US today and does still express some discomfort in her stomach/rib area. CM will follow for dc planning and the possible need to adjust the dc plan.
[2020-09-04] MEDS: Morphine Sulfate 2 MG/ML CARTRIDGE 1 MG IVPUSH ×3 (11:22→19:19)
[2020-09-04 12:24] LABS: UPreg QC Valid YES; Urine Pregnancy NEGATIVE (NEGATIVE)
[2020-09-04 15:59] LABS: Hematocrit 35.9 % (37-47); Hemoglobin 12.2 g/dl (12.0-16.0); Mean Corpuscular Hemoglobin 32.5 pg (27.0-33.0); Mean Corpuscular Volume 95.7 fL (80-98); Mean Platelet Volume 9.3 fL (9.4-12.3); Platelet Count 373 X10*3/uL (160-400); Red Blood Count 3.75 X10*6/uL (4.20-5.50); Red Cell Distribution Width 12.6 % (11.0-16.0); White Blood Count 8.6 X10*3/uL (4.8-10.8)
--- NOTE | 2020-09-04 16:03 | P.CONOB_ITS ---
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 Ms. Lu is a 25 year old female who presented to the emergency room with a 2 week history of abdominal pain, the pain is supra umbilical, no associated pelvic pain, vaginal discharge or any other quality assurance analyst symptoms. The patient had Nexplanon taken out 3 months ago since then has been having irregular bleeding last menstrual period was on the 25 of August was heavier than the usual and the pain started around the 1st day of her. According to the patient, no previous history of periumbilical or epigastric pain related to previous menses no history of endometriosis. 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 - Review of Systems Review of Systems ROS Unobtainable: All systems reviewed & are unremarkable except as noted in HPI and below Cardiovascular: Denies Palpatations, Loss of consciousness and Chest pain Respiratory: Denies Cough, Wheezing and Shortness of breath Musculoskeletal: Denies Low back pain Gastrointestinal: Denies Heartburn, Constipation, Diarrhea, Nausea and Vomiting Genitourinary: Denies Pain with urination, Burning with urination and Urinary frequency Neurological: Denies Migranes Psychological: Denies Depression OB PMFSH Past Medical History Medical History (Updated 09/05/20 @ 08:03 by Tiera Britton PA-C) Acid reflux Asthma Bulging disc Hiatal hernia Smoker Urinary tract infection Social History Social History Do you presently have visiting nurse or other home services: No Smoking Status: Current every day smoker Tobacco Type: Cigarette Smoked in Last 30 Days: Yes Patient Interested in Nicotine Replacement: Yes Patient Given Instructions on How to Stop Smoking: Yes Date Education Initiated: 09/03/20 Second Hand Smoke Exposure: No Use of substances other than those prescribed or required for medical reasons: Yes Substance Use Type: Marijuana Substance Use Frequency: Daily Last Used Substance: Unknown Currently Displaying Signs/Symptoms of Drug Intoxication Withdrawal: No Any prior treatment program specific to substance use: No Have you been hit, kicked, punched, or otherwise hurt by someone within the past year? If so, by whom?: No Do you feel safe in your current relationship?: No Is there a partner from a previous relationship who is making you feel unsafe now?: No Are you made to feel afraid or neglected: No Advance Directives: No Advance Directives Information Provided: No Advance Directives on File: No Do you have thoughts of harming others: None Do you have a plan to hurt others: No Plan Recently lost weight without trying: No Current occupational status: unemployed Meds Allergies Allergy/AdvReac Type Severity Reaction Status Date / Time aloe vera [Flexall] Allergy Unknown Verified 06/11/19 00:00 cyclobenzaprine Allergy Unknown RASH Unverified 03/23/20 19:43 [From FLEXERIL] menthol [Flexall] Allergy Unknown Verified 06/11/19 00:00 penicillin V Allergy Unknown Verified 06/11/19 00:00 Penicillins [PENICILLINS] Allergy Unknown RASH Unverified 03/23/20 19:43 vitamin E (d-alpha Allergy Unknown Verified 06/11/19 00:00 tocopherol) [Flexall] Active Medications: Current Medications Generic Name Dose Route Start Last Admin Trade Name Freq PRN Reason Stop Dose Admin Morphine Sulfate 1 mg 09/04/20 11:11 09/04/20 15:29 Morphine Sulfate 2 Mg/Ml Cartridge IVPUSH 1 mg Q3H PRN Administration Pain, Severe (Pain Scale 7-10) Nicotine 7 mg 09/03/20 09:00 09/04/20 10:45 Nicotine 7 Mg Patch.Td24 TRANSDERMA 7 mg DAILY KALEB Administration Ondansetron HCl 4 mg 09/02/20 13:37 Ondansetron Hcl 4 Mg/2 Ml Vial IVPUSH Q8H PRN nausea' Oxycodone HCl 5 mg 09/02/20 13:35 09/04/20 06:25 Oxycodone Hcl Immed Release 5 Mg Tablet PO 5 mg Q6H PRN Administration Pain, Moderate (Pain Scale 4-6 Sodium Chloride 3 ml 09/02/20 16:00 09/04/20 15:29 0.9 % Sodium Chloride Flush 3 Ml Syringe IVFLUSH 3 ml QSHIFT KALEB Administration Trimethoprim/Sulfamethoxazole 1 tab 09/03/20 10:00 09/04/20 10:46 Sulfamethox/Trimeth 800/160 1 Tab Tablet PO 1 tab Q12H KALEB Administration HORSE RACE STARTER Physical Exam Vitals Vital signs: Temp Pulse Resp BP Pulse Ox 97.3 F 93 17 109/52 L 100 09/04/20 15:13 09/04/20 15:13 09/04/20 15:29 09/04/20 15:13 09/04/20 15:13 Body Mass Index 22.6 Constitutional General Appearance: Healthy appearing, Well-nourished and Well-developed Psychiatric Mood and Affect: active and alert, normal mood and normal affect Skin Appearance: No rashes and No lesions Lungs Respiratory Effort: No intercostal retractions Auscultation: Clear to auscultation Cardiovascular Auscultation: RRR Abdomen Auscultation/Inspection/Palpation: Normal bowel sounds, Soft, Non-distended and No tenderness Female Genitalia (Pelvic) Bladder/Urethra: Normal meatus and No discharge Vulva: No lesions Vagina: Nontender Cervix: Grossly normal, No discharge and No cervical motion tenderness Uterus: Normal size, Nontender and Fibroids Adnexa/Parametria: Adnexal Tenderness: None, Adnexal Mass: None, Parametrial Tenderness: None and Parametrial Mass: None HORSE RACE STARTER - Results Labs CBC & Chem 7: 09/04/20 15:29 09/03/20 05:46 Labs: Urine 09/02/20 09/02/20 09/04/20 Range/Units 09:57 09:57 11:43 Urine Color YELLOW Urine Appearance HAZY Urine pH 7.0 (5.0-8.0) Ur Specific [place] 1.020 (1.005-1.025) Urine Protein NEG (NEG-TRACE) MG/DL Urine Glucose (UA) NEG (NEG) MG/DL Urine Test NEGATIVE NEGATIVE (NEGATIVE) Assessment and Plan (1) Abdominal pain: Qualifiers: Abdominal location: right lower quadrant Qualified Code(s): R10.31 - Right lower quadrant pain Status: Acute The location & history of the of the pain is not consistent with quality assurance analyst causes, GC and chlamydia and BV panel taken, will check the results and treat accordingly. Since the history is not consistent with PID the location of the pain is not and there is no cervical motion tenderness uterine tenderness or pelvic area tenderness, it is unlikely for the patient to have PID, urine test done was negative . (2) Urinary tract infection: Problem details: On Bactrim, day 3 Status: Acute
[2020-09-04 16:06] LABS: Alanine Aminotransferase 6 U/L (0-31); Albumin Level 3.7 g/dL (3.5-5.0); Alkaline Phosphatase 49 U/L (39-117); Aspartate Amino Transferase 10 U/L (5-31); Bilirubin Direct < 0.2 mg/dL (0.0-0.5); Bilirubin Total 0.3 mg/dL (0.0-1.0); Total Protein 6.5 g/dL (6.5-8.0)
[2020-09-04] MEDS: LORazepam 2 MG/ML VIAL 1 MG IVPUSH (21:14)
[2020-09-05 05:36] VITALS: BP 101/42; PULSE 78; RESP 18; TEMP 36.7; O2SAT 98
[2020-09-05] MEDS: Morphine Sulfate 2 MG/ML CARTRIDGE 1 MG IVPUSH ×3 (05:50→21:46)
[2020-09-05 07:26] VITALS: BP 103/57; PULSE 79; RESP 18; TEMP 36.9; O2SAT 98
--- NOTE | 2020-09-05 07:59 | PM.PNGS ---
Subjective Subjective Date of Service: 09/05/20 <Tiera Britton PA-C - Last Filed: 09/05/20 08:06> 09/05/20 <Miguel Yost MD - Last Filed: 09/05/20 09:53> Interval history: Continues to have pinpoint pain in epigastric/RUQ region. Worsens with deep breathing. COmfortable only with pain medication. Reports ibuprofen 600mg BID and tramadol use for back and period pains prior to admission. <Tiera Britton PA-C - Last Filed: 09/05/20 08:06> Physical Exam Vital Signs: Vital Signs: Last Vital Signs Temp 98.4 F 09/05/20 07:26 Pulse 79 09/05/20 07:26 Resp 18 09/05/20 07:26 BP 103/57 L 09/05/20 07:26 Pulse Ox 98 09/05/20 07:26 Body Mass Index 22.6 <Tiera Britton PA-C - Last Filed: 09/05/20 08:06> Const: General: healthy appearing, comfortable and no acute distress <Tiera Britton PA-C - Last Filed: 09/05/20 08:06> Orientation/consciousness: patient oriented x3 <Tiera Britton PA-C - Last Filed: 09/05/20 08:06> Eyes: Sclerae: sclerae normal <Tiera Britton PA-C - Last Filed: 09/05/20 08:06> Chest: Chest palpation & inspection: normal inspection of the chest and other (no tenderness with palpation of sternum/ribs) <Tiera Britton PA-C - Last Filed: 09/05/20 08:06> Resp: Effort & Inspection: normal respiratory effort <Tiera Britton PA-C - Last Filed: 09/05/20 08:06> Cardio: Rate: regular rate <FLORENCE Corley Last Filed: 09/05/20 08:06> GI: Inspection: Yes normal to inspection and No distended <FLORENCE Corley Last Filed: 09/05/20 08:06> Palpation (GI): Soft to palpation, Tenderness to palpation present (GI) (pinpoint tenderness in epigastric/RUQ region), no guarding, not rigid and No Rebound tenderness present <Tiera Britton PA-C - Last Filed: 09/05/20 08:06> Percussion: Yes normal to percussion <Tiera Britton PA-C - Last Filed: 09/05/20 08:06> Skin: General skin exam: no rashes or lesions noted <Tiera Britton PA-C - Last Filed: 09/05/20 08:06> Neuro: General: patient oriented x3 <Tiera Britton PA-C Estefanía Last Filed: 09/05/20 08:06> Extrem: General: Yes no clubbing, cyanosis or edema <FLORENCE Corley Last Filed: 09/05/20 08:06> Progress Note: A&P Assessment and plan (1) Urinary tract infection: Problem details: On Bactrim, day 3 <Tiera Britton PA-C Estefanía Last Filed: 09/05/20 08:06> Status: Acute <Tiera Britton PA-C Estefanía Last Filed: 09/05/20 08:06> (2) Smoker: Status: Acute <Tiera Britton PA-C Estefanía Last Filed: 09/05/20 08:06> (3) Abdominal pain: Status: Acute <Tiera Britton PA-C Estefanía Last Filed: 09/05/20 08:06> Assessment and Plan: Pinpoint pain persists. Unclear etiology of pain- no obvious source on any imaging. 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 ?Gastritis vs PUD. She does report heavy ibuprofen use prior. Will start on omeprazole. Will also start on colace given no BM since Friday. Reassess later today. She is nontoxic appearing, vitals are stable. 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 issue will ask for Medical consult in view of uncertain diagnosis - pt says she is anxious about her pain on lower ribcage with insipiration discussed above with pt seen and examined - agree with SHAN Britton <Miguel Yost MD - Last Filed: 09/05/20 09:53> (4) Asthma: Status: Acute <Tiera Britton PA-C - Last Filed: 09/05/20 08:06> Fall Risk Details Current Medications: Current Medications Generic Name Dose Route Start Last Admin Trade Name Freq PRN Reason Stop Dose Admin Morphine Sulfate 1 mg 09/04/20 11:11 09/05/20 05:50 Morphine Sulfate 2 Mg/Ml Cartridge IVPUSH 1 mg Q3H PRN Administration Pain, Severe (Pain Scale 7-10) Nicotine 7 mg 09/03/20 09:00 09/04/20 10:45 Nicotine 7 Mg Patch.Td24 TRANSDERMA 7 mg DAILY KALEB Administration Omeprazole 20 mg 09/05/20 08:00 Omeprazole 20 Mg Capsule.Dr JIM BID@[id number] KALEB Ondansetron HCl 4 mg 09/02/20 13:37 Ondansetron Hcl 4 Mg/2 Ml Vial IVPUSH Q8H PRN nausea' Oxycodone HCl 5 mg 09/02/20 13:35 09/04/20 17:05 Oxycodone Hcl Immed Release 5 Mg Tablet PO 5 mg Q6H PRN Administration Pain, Moderate (Pain Scale 4-6 Sodium Chloride 3 ml 09/02/20 16:00 09/04/20 23:37 0.9 % Sodium Chloride Flush 3 Ml Syringe IVFLUSH 3 ml QSHIFT KALEB Administration Trimethoprim/Sulfamethoxazole 1 tab 09/03/20 10:00 09/04/20 21:17 Sulfamethox/Trimeth 800/160 1 Tab Tablet PO 1 tab Q12H KALEB Administration <Tiera Britton PA-C - Last Filed: 09/05/20 08:06> Time Spent With Patient Time: Total time spent is greater than 50% in coordination of care (as documented) at patient's floor/unit and/or counseling patient: <Tiera Britton PA-C - Last Filed: 09/05/20 08:06> Time with patient: 15 - 24 minutes <Tiera Britton PA-C - Last Filed: 09/05/20 08:06> Procedures Date of Service Date of Service: 09/05/20 <Tiera Britton PA-C - Last Filed: 09/05/20 08:06>
[2020-09-05] MEDS: Omeprazole 20 MG CAPSULE.DR PO ×2 (08:36→16:17)
[2020-09-05] MEDS: Nicotine 7 MG PATCH.TD24 TRANSDERMA (08:36)
[2020-09-05] MEDS: Docusate Sodium 100 MG CAPSULE PO (08:36)
[2020-09-05] MEDS: 0.9 % Sodium Chloride Flush 3 ML SYRINGE IVFLUSH ×3 (08:37→23:54)
[2020-09-05 09:28] LABS: BV Int Neg Control Negative (Negative); BV Int Pos Control Positive (Positive)
[2020-09-05 11:21] VITALS: BP 125/55; PULSE 72; RESP 18; TEMP 36.7; O2SAT 98
--- NOTE | 2020-09-05 11:36 | PM.IMCN ---
History of Present Illness Data of Consult Service Date: 09/05/20 Requesting physician: Miguel Yost Primary Care Provider: Augustin Castano MD HPI Reason for consult: Abdominal pain 25 year old women admitted by general surgery with abdominal pain thought to be related to appendicitis. Acute abdominal abnormality ruled out. However, patient still with RUQ pain with deep inspiration. No fever, hypoxia noted, stable vital signs. Seen by [employer], Positive STD panel for Trichomonas and bacterial vaginosis. Patient reported over the last month she has significantly increased her NSAID use due to abdominal and menstrual pain. She stated that she has 200 and 600mg tablets and she may take 4 a day. She also stated a history of gastritis in the past but not on PPI. She felt like the pain she is having now was not similar to previous gastritis pain. She reported a good appetite and had finished her lunch during the interview. Review of Systems Review of Systems: Denies any recent fever chills or decrease in appetite respiratory denies any shortness of breath coverage production cardiovascular is adjustment of any PND or edema gastrointestinal denies any dysphagia abdominal pain nausea vomiting or diarrhea genitourinary denies any dysuria frequency or hematuria musculoskeletal denies any joint pain or swelling neuropsych denies any weakness or seizures all other systems reviewed are negative [facility] Medical History (Updated 09/05/20 @ 08:03 by Tiera Britton PA-C) Acid reflux Asthma Bulging disc Hiatal hernia Smoker Urinary tract infection Social History Do you presently have visiting nurse or other home services: No Smoking Status: Current every day smoker Tobacco Type: Cigarette Smoked in Last 30 Days: Yes Patient Interested in Nicotine Replacement: Yes Patient Given Instructions on How to Stop Smoking: Yes Date Education Initiated: 09/03/20 Second Hand Smoke Exposure: No Use of substances other than those prescribed or required for medical reasons: Yes Substance Use Type: Marijuana Substance Use Frequency: Daily Last Used Substance: Unknown Currently Displaying Signs/Symptoms of Drug Intoxication Withdrawal: No Any prior treatment program specific to substance use: No Have you been hit, kicked, punched, or otherwise hurt by someone within the past year? If so, by whom?: No Do you feel safe in your current relationship?: No Is there a partner from a previous relationship who is making you feel unsafe now?: No Are you made to feel afraid or neglected: No Advance Directives: No Advance Directives Information Provided: No Advance Directives on File: No Do you have thoughts of harming others: None Do you have a plan to hurt others: No Plan Recently lost weight without trying: No Current occupational status: unemployed Meds Allergies Allergy/AdvReac Type Severity Reaction Status Date / Time aloe vera [Flexall] Allergy Unknown Verified 06/11/19 00:00 cyclobenzaprine Allergy Unknown RASH Unverified 03/23/20 19:43 [From FLEXERIL] menthol [Flexall] Allergy Unknown Verified 06/11/19 00:00 penicillin V Allergy Unknown Verified 06/11/19 00:00 Penicillins [PENICILLINS] Allergy Unknown RASH Unverified 03/23/20 19:43 vitamin E (d-alpha Allergy Unknown Verified 06/11/19 00:00 tocopherol) [Flexall] Active Medications: Current Medications Generic Name Dose Route Start Last Admin Trade Name Freq PRN Reason Stop Dose Admin Docusate Sodium 100 mg 09/05/20 09:00 09/05/20 08:36 Docusate Sodium 100 Mg Capsule PO 100 mg BID KALEB Administration Morphine Sulfate 1 mg 09/04/20 11:11 09/05/20 05:50 Morphine Sulfate 2 Mg/Ml Cartridge IVPUSH 1 mg Q3H PRN Administration Pain, Severe (Pain Scale 7-10) Nicotine 7 mg 09/03/20 09:00 09/05/20 08:36 Nicotine 7 Mg Patch.Td24 TRANSDERMA 7 mg DAILY KALEB Administration Omeprazole 20 mg 09/05/20 08:00 09/05/20 08:36 Omeprazole 20 Mg Capsule. PO 20 mg BID@5530,7340 KALEB Administration Ondansetron HCl 4 mg 09/02/20 13:37 Ondansetron Hcl 4 Mg/2 Ml Vial IVPUSH Q8H PRN nausea' Oxycodone HCl 5 mg 09/02/20 13:35 09/04/20 17:05 Oxycodone Hcl Immed Release 5 Mg Tablet PO 5 mg Q6H PRN Administration Pain, Moderate (Pain Scale 4-6 Sodium Chloride 3 ml 09/02/20 16:00 09/05/20 08:37 0.9 % Sodium Chloride Flush 3 Ml Syringe IVFLUSH 3 ml QSHIFT KALEB Administration Trimethoprim/Sulfamethoxazole 1 tab 09/03/20 10:00 09/05/20 10:02 Sulfamethox/Trimeth 800/160 1 Tab Tablet PO 1 tab Q12H KALEB Administration Physical Exam Vital Signs and Narrative: Vital Signs: Last Vital Signs Temp 98.0 F 09/05/20 11:21 Pulse 72 09/05/20 11:21 Resp 18 09/05/20 11:21 BP 125/55 L 09/05/20 11:21 Pulse Ox 98 09/05/20 11:21 Body Mass Index 22.6 Appearing in no acute distress head is normocephalic atraumatic eyes pupils are PERRLA sclera is anicteric mouth throat mucous membranes are intact and moist neck is supple no lymphadenopathy, no JVD noted lung sounds are clear to auscultation heart regular rate rhythm, clear S1, S2 positive bowel sounds, abdomen is soft, nontender neuro patient is alert x3, no focal deficits Results Labs CBC and Chem 7: 09/04/20 15:29 09/03/20 05:46 Labs: Laboratory Results - last 24 hr 09/04/20 09/04/20 09/04/20 11:43 15:29 15:29 MCV 95.7 MCH 32.5 MCHC 34.0 RDW 12.6 Plt Count 373 MPV 9.3 L Absolute Nucleated RBC 0.000 Nucleated RBC % (auto) 0.0 Total Bilirubin 0.3 Direct Bilirubin < 0.2 AST 10 ALT 6 Alkaline Phosphatase 49 D Total Protein 6.5 Albumin 3.7 Urine Test NEGATIVE Mayela species DNA Gardnerella DNA Probe Trichomonas DNA Probe 09/04/20 Unknown MCV MCH MCHC RDW Plt Count MPV Absolute Nucleated RBC Nucleated RBC % (auto) Total Bilirubin Direct Bilirubin AST ALT Alkaline Phosphatase Total Protein Albumin Urine Test Mayela species DNA Negative Gardnerella DNA Probe Positive A Trichomonas DNA Probe Positive A Assessment and Plan (1) Abdominal pain: Qualifiers: Abdominal location: right lower quadrant Qualified Code(s): R10.31 - Right lower quadrant pain Status: Acute (2) Urinary tract infection: Problem details: On Bactrim, day 3 Status: Acute 25 year old women admitted with abdominal pain by general surgery. Initially it was thought that she had appendicitis but abdominal ultrasound was negative for that. Abdominal pain. possible gastritis. - +bacterial vaginosis and trichomonas. Flagyl 2gm now. - PPI, Hx of NSAID use. - HIV pending. UTI. Completed 3 days of Bactrim. Complete total 5 days. Constipation. Continue colace. Smoker. NRT, Discussed smoking cessation. Attending: Dr. Townsend
[2020-09-05] MEDS: metroNIDAZOLE 500 MG TABLET 2000 MG PO (12:29)
[2020-09-05 15:41] VITALS: BP 129/58; PULSE 100; RESP 22; TEMP 36.4; O2SAT 100
[2020-09-05] MEDS: LORazepam 1 MG TABLET PO (16:17)
[2020-09-05] MEDS: oxyCODONE HCl Immed Release 5 MG TABLET PO (17:15)
[2020-09-05] MEDS: Acetaminophen 325 MG TABLET 650 MG PO (19:29)
[2020-09-05 19:49] VITALS: BP 110/57; PULSE 89; RESP 14; TEMP 36; O2SAT 100
[2020-09-05 23:15] VITALS: BP 110/56; PULSE 100; RESP 18; TEMP 36.5; O2SAT 99
[2020-09-06 03:45] VITALS: BP 124/64; PULSE 81; RESP 18; TEMP 36.8; O2SAT 98
[2020-09-06] MEDS: LORazepam 1 MG TABLET PO (05:58)
[2020-09-06] MEDS: Omeprazole 20 MG CAPSULE.DR PO (05:58)
[2020-09-06 08:00] VITALS: BP 109/56; PULSE 95; RESP 16; TEMP 36.6; O2SAT 99
[2020-09-06 08:11] LABS: HIV AB/AG Nonreactive (Nonreactive); HIV Num 1 0.07 S/CO (0.00-0.99)
--- NOTE | 2020-09-06 08:28 | PM.PNGS ---
Subjective Subjective Date of Service: 09/06/20 <Tiera Britton PA-C - Last Filed: 09/06/20 08:34> 09/06/20 <Miguel Yost MD - Last Filed: 09/06/20 08:41> Interval history: Feels better this morning. Epigastric pain is less severe and she is comfortable. Still having some pain that radiates into back with deep breaths but overall improved and ready for discharge. Feels her anxiety is increased this morning and feels overwhelmed. Denies SI/HI. Feels safe to return to home- she has a therapist who she speaks with weekly. <Tiera Britton PA-C - Last Filed: 09/06/20 08:34> Physical Exam Vital Signs: Vital Signs: Last Vital Signs Temp 98 F 09/06/20 08:00 Pulse 95 09/06/20 08:00 Resp 16 09/06/20 08:00 BP 109/56 L 09/06/20 08:00 Pulse Ox 99 09/06/20 08:00 Body Mass Index 22.6 <Tiera Britton PA-C - Last Filed: 09/06/20 08:34> Const: General: comfortable, no acute distress and alert <Tiera Britton PA-C - Last Filed: 09/06/20 08:34> Orientation/consciousness: patient oriented x3 <Tiera Britton PA-C - Last Filed: 09/06/20 08:34> Eyes: Sclerae: sclerae normal <Tiera Britton PA-C - Last Filed: 09/06/20 08:34> Resp: Effort & Inspection: normal respiratory effort <Tiera Britton PA-C - Last Filed: 09/06/20 08:34> GI: Inspection: Yes normal to inspection and No distended <FLORENCE Corley Last Filed: 09/06/20 08:34> Palpation (GI): Soft to palpation, Tenderness to palpation present (GI) (mild epigastric tenderness), no guarding, not rigid and No Rebound tenderness present <FLORENCE Corley Last Filed: 09/06/20 08:34> Percussion: Yes normal to percussion <Tiera Britton PA-C - Last Filed: 09/06/20 08:34> Skin: General skin exam: no rashes or lesions noted <Tiera Britton PA-C - Last Filed: 09/06/20 08:34> Neuro: General: patient oriented x3 <FLORENCE Corley Last Filed: 09/06/20 08:34> Extrem: General: Yes no clubbing, cyanosis or edema <Tiera Britton PA-C - Last Filed: 09/06/20 08:34> Progress Note: A&P Assessment and plan (1) Urinary tract infection: Problem details: On Bactrim, day 4 <Tiera Britton PA-C - Last Filed: 09/06/20 08:34> Status: Acute <FLORENCE Corley Last Filed: 09/06/20 08:34> (2) Abdominal pain: Status: Acute <Tiera Britton PA-C - Last Filed: 09/06/20 08:34> Assessment and Plan: Improved this morning, mild tenderness upon exam. Clinically appearing well, VSS. Stable for d.c to home today. Cont PPI BID. F/u with PCP. Educated to avoid NSAIDs. Has significant anxiety. Currently has therapist. She will reach out to therapist for appointment. <Tiera Britton PA-C - Last Filed: 09/06/20 08:34> Says she feels better Admits to severe anxiety issues Says she has been following a therapist She says she has a difficult home situation as well Abdomen remains benign All imaging studies do not show any significant intra-abdominal pathology To complete 1 more day of Bactrim Given Flagyl yesterday for vaginosis She feels ready to go home I have strongly recommended for her to continue to follow her therapist as well as primary care physician -this was emphasized to her I have prescribed her a few doses of Percocet and Ativan Seen and examined -agree with SHAN Britton <Miguel Yost MD - Last Filed: 09/06/20 08:41> (3) Trichomonas infection: Status: Acute <iTera Britton PA-C - Last Filed: 09/06/20 08:34> Assessment and Plan: Received flagyl 2g yesterday. Educated on safe intercourse practices. Her partner is aware and will seek treatment. <Tiera Britton PA-C - Last Filed: 09/06/20 08:34> Fall Risk Details Current Medications: Current Medications Generic Name Dose Route Start Last Admin Trade Name Freq PRN Reason Stop Dose Admin Acetaminophen 650 mg 09/05/20 12:36 09/05/20 19:29 Acetaminophen 325 Mg Tablet PO 650 mg Q6H PRN Administration fever or pain Docusate Sodium 100 mg 09/05/20 09:00 09/05/20 21:52 Docusate Sodium 100 Mg Capsule PO Not Given BID KLAEB Lorazepam 1 mg 09/05/20 15:39 09/06/20 05:58 Lorazepam 1 Mg Tablet PO 1 mg TID PRN Administration Anxiety Morphine Sulfate 1 mg 09/04/20 11:11 09/05/20 21:46 Morphine Sulfate 2 Mg/Ml Cartridge IVPUSH 1 mg Q3H PRN Administration Pain, Severe (Pain Scale 7-10) Nicotine 7 mg 09/03/20 09:00 09/05/20 08:36 Nicotine 7 Mg Patch.Td24 TRANSDERMA 7 mg DAILY KALEB Administration Omeprazole 20 mg 09/05/20 08:00 09/06/20 05:58 Omeprazole 20 Mg Capsule.Dr PO 20 mg BID@0630,1630 KALEB Administration Ondansetron HCl 4 mg 09/02/20 13:37 Ondansetron Hcl 4 Mg/2 Ml Vial IVPUSH Q8H PRN nausea' Oxycodone HCl 5 mg 09/02/20 13:35 09/05/20 17:15 Oxycodone Hcl Immed Release 5 Mg Tablet PO 5 mg Q6H PRN Administration Pain, Moderate (Pain Scale 4-6 Sodium Chloride 3 ml 09/02/20 16:00 09/05/20 23:54 0.9 % Sodium Chloride Flush 3 Ml Syringe IVFLUSH 3 ml QSHIFT KALEB Administration Trimethoprim/Sulfamethoxazole 1 tab 09/03/20 10:00 09/05/20 21:33 Sulfamethox/Trimeth 800/160 1 Tab Tablet PO 1 tab Q12H KALEB Administration <Tiera Brtiton PA-C - Last Filed: 09/06/20 08:34> Time Spent With Patient Time: Total time spent is greater than 50% in coordination of care (as documented) at patient's floor/unit and/or counseling patient: <Tiera Britton PA-C - Last Filed: 09/06/20 08:34> Time with patient: 15 - 24 minutes <Tiera Britton PA-C - Last Filed: 09/06/20 08:34> Procedures Date of Service Date of Service: 09/06/20 <Tiera Britton PA-C - Last Filed: 09/06/20 08:34>
[2020-09-06] MEDS: Nicotine 7 MG PATCH.TD24 TRANSDERMA (08:44)
--- NOTE | 2020-09-06 08:44 | MHC.CM.PN ---
DP female 25 dx ab pain r/t STD is discharged today to home no services and pt has arranged for private transportation.
[2020-09-06] MEDS: 0.9 % Sodium Chloride Flush 3 ML SYRINGE IVFLUSH (08:45)
[2020-09-06] MEDS: oxyCODONE HCl Immed Release 5 MG TABLET PO (08:45)
--- NOTE | 2020-09-06 09:25 | P.DS_ITS ---
DS: Providers Provider Date of Service: 09/06/20 Date of admission: 09/02/20 13:33 Primary care physician: Augustin Castano MD Consults: 09/04/20 15:12 Consult to Obstetrics / Gynecology Routine Consulting Provider: Moise Pearce Reason for consultation: fibroid; pelvic pain 09/05/20 09:05 Consult to Hospitalist Routine Consulting Provider: Hospitalist Reason For Exam: right lower rib/chest pain with inspiration DS: Diagnosis Discharge Diagnosis (1) Abdominal pain: Status: Acute (2) Urinary tract infection: Status: Acute (3) Trichomonas infection: Status: Acute DS: Medications Discharge Medications Home Medications: Previous Rx's Medication Instructions Recorded sulfamethoxazole-trimethoprim 1 tab PO Q12H #10 tab 09/04/20 lorazepam [Ativan] 1 mg PO BEDTIME PRN #10 tab 09/06/20 omeprazole 20 mg PO BID #60 cap 09/06/20 oxycodone-acetaminophen [Percocet] 1 tab PO Q6H PRN #15 tab 09/06/20 DS: Summary Hospital Course Hospital Course: BRIEF HPI: Becca Lu is a 25 year old female seen in the ED for abdominal pain. She says she has had is pain for over 2 weeks now. She says this is mostly around her mid abdomen, and pointed to the area around the umbilicus. She says she thought that the pain was related to her mentrual period 2 weeks ago, but this had persisted that was why she came to the ED. She says the pain has remained the same the past 2 weeks. She denies any nausea, vomiting or fever. She denies diarrhea or constipation. She admits to being sexually active with one partner. She denies vaginal discharge. She denies urinary complaints. Work up in the ED included a CT scan with findings of mild fat stranding in the lower abdomen, mild dilatation of the small bowel loops, and question of dilated appendix and some free fluid in the pelvis. She had no leukocytosis. HOSPITAL COURSE: Due to the persistence and severity of pain and the uncertain etiology, she was admitted to the surgical service for further work up and observation. Her overall clinical picture was not c/w acute appendicitis. Pelvic US was obtained for further assessment although she denied any gynecologic complaints and there was no evidence of such on CT scan. She was kept on clear liquids and PRN analgesics for pain. The pelvic US revealed a 2.1 cm soft tissue lesion adjacent to the right aspect of the uterine fundus, likely order entry representative of an exophytic subserosal fibroid without any other pathology. Her pain persisted but she began to report it in the epigastric/RUQ region. Her abd exam was benign and vitals were stable. Her WBC remained normal. She did have WBC and bacteria in her urine and was therefore started on PO Bactrim for treatment of a UTI. The following day she continued to report RUQ pain and therefore an ABD US was obtained which was normal. A OBGYN was obtained for the soft tissue lesion and to r/o RIGHT OF WAY APPRAISER pathology. They felt the pain was not secondary to any RIGHT OF WAY APPRAISER pathology. Serologies were obtained. On HD #3, the epigastric/pain persisted and she was started on a PPI BID as she admitted to ibuprofen use for pain control. A hospitalist consult was obtained to help r/o any other pathology for the abdominal pain. Trichomonas and gardn erella came back positive and she was treated with flagyl 2g PO once. She was educated on having her partner undergo treatment as well and safe intercourse practices. Her pain eventually improved and she felt better and was tolerating a diet. Her abdomen remained very benign the entire stay and she was non toxic appearing. She felt ready for discharge. She was discharged to home on 09/06/20 in stable condition with omeprazole BID and PO bactrim to complete 5 days of treatment of the UTI. She is to follow up with her PCP and her therapist upon discharge. Status at Discharge Functional status at discharge: independent ambulation Overall status at discharge: patient is progressing back to baseline Time Spent with Patient Time attestation: Total time spent providing and/or coordinating discharge services: Discharge coordination time: Less than 30 minutes Physical Exam Vital Signs: Vital Signs: Last Vital Signs Temp 98 F 09/06/20 08:00 Pulse 95 09/06/20 08:00 Resp 16 09/06/20 08:00 BP 109/56 L 09/06/20 08:00 Pulse Ox 99 09/06/20 08:00 Body Mass Index 22.6 Const: General: comfortable, no acute distress and alert Orientation/consciousness: patient oriented x3 Eyes: Sclerae: sclerae normal Resp: Effort & Inspection: normal respiratory effort GI: Inspection: Yes normal to inspection and No distended Palpation (GI): Soft to palpation, Tenderness to palpation present (GI) (mild epigastric), no guarding, not rigid and No Rebound tenderness present Percussion: Yes normal to percussion Skin: General skin exam: no rashes or lesions noted Neuro: General: patient oriented x3 Extrem: General: Yes no clubbing, cyanosis or edema DS: Data Data Completed and Pending Labs on day of discharge: Laboratory Results - last 24 hr 09/04/20 09/04/20 09/05/20 Unknown Unknown 14:23 Mayela species DNA Negative Chlamydia Culture Cancelled Chlamydia Cult Source Cancelled Gardnerella DNA Probe Positive A HIV 1&2 Ab/P24 Ag 4thGn Nonreactive Trichomonas DNA Probe Positive A Discharge Plan Discharge Patient Disposition: Home, Self-Care Referrals: Augustin Fowler MD [Primary Care Provider] - 1 Week Discharge Medications: New sulfamethoxazole-trimethoprim 800-160 mg Tablet 1 tab PO Q12H Qty: 10 RF: 0 oxycodone-acetaminophen [Percocet] 5-325 mg tablet 1 tab PO Q6H PRN (Reason: pain) Qty: 15 RF: 0 lorazepam [Ativan] 1 mg tablet 1 mg PO BEDTIME PRN (Reason: anxiety) Qty: 10 RF: 0 omeprazole 20 mg capsule,delayed release(DR/EC) 20 mg PO BID Qty: 60 RF: 1 Discharge Orders: Discharge Order (Routine); Ordered 09/06/20 Ordered By: Tiera Britton Diet: advance to usual diet Activity on Discharge: As tolerated Stand Alone Forms: Patient Portal Discharge page, Work/School Release Care Plan Goals: Return to baseline health Health Concerns: Abdominal pain, possible gastritis, UTI, trichomonas infection Plan of Treatment: PO abx, f/u with PCP
== END 2020-09-06 10:14 | disposition home or self-care (01) | DRG 463 ==
LOC: HO.ED 12:54 → HO.EDOVER 13:43 → HO.IMC 23:55
PROVIDERS: Nurse Practitioner Acute Care; Obstetrics & Gynecology; Admitting Provider Surgery; Emergency Provider Emergency Medicine Emergency Medical Services; PCP Internal Medicine; Visit Provider Surgery
DX: N39.0 Urinary tract infection, site not specified (principal); A59.01 Trichomonal vulvovaginitis; F17.210 Nicotine dependence, cigarettes, uncomplicated; J45.909 Unspecified asthma, uncomplicated; K59.00 Constipation, unspecified; Z88.0 Allergy status to penicillin; Z20.822 Contact with and (suspected) exposure to COVID-19; Z71.6 Tobacco abuse counseling; Z79.899 Other long term (current) drug therapy
CPT/HCPCS: 36415; 71046; 74177; 76700; 76830; 76856; 80048; 80053; 80076; 81001; 81003; 81025; 83690; 85025; 85027; 87086; 87389; 87480; 87491; 87510; 87591; 87635; 87660; 96360; 99219; 99285; J1885; J2060; J2270; J2405

== ENCOUNTER 2020-09-11 12:10 | Outpatient (REF) | payer MEDICAID, SELFPAY ==
[2020-09-11 14:25] LABS: Syphilis Screen Nonreactive (Nonreactive)
[2020-09-12 04:30] LABS: HBsAGNum1 0.15 S/CO (0.00-0.99); Hepatitis B Surface Antigen Negative (Negative); ~HepC Num1 0.14 S/CO (0.00-0.79); ~Hepatitis C Antibody Nonreactive (Nonreactive)
== END 2020-09-11 12:11 | disposition home or self-care (01) ==
LOC: HO.LAB 12:10
PROVIDERS: PCP Internal Medicine; Visit Provider Obstetrics & Gynecology
DX: A74.9 Chlamydial infection, unspecified (principal)
CPT/HCPCS: 36415; 86780; 86803; 87340; 99212

== ENCOUNTER 2020-10-12 10:27 | Outpatient (REF) | payer MEDICAID, SELFPAY ==
[2020-10-12 17:10] LABS: CT PCR NOT DETECTED (Not Detect.); NG PCR NOT DETECTED (Not Detect.)
[2020-10-13 09:13] LABS: BV Int Neg Control Negative (Negative); BV Int Pos Control Positive (Positive)
== END 2020-10-12 10:28 | disposition home or self-care (01) ==
LOC: HO.LAB 10:27
PROVIDERS: PCP Internal Medicine; Visit Provider Obstetrics & Gynecology
DX: A59.9 Trichomoniasis, unspecified (principal); A74.9 Chlamydial infection, unspecified; F17.200 Nicotine dependence, unspecified, uncomplicated; Z88.0 Allergy status to penicillin; Z88.8 Allergy status to other drugs, medicaments and biological substances; Z91.048 Other nonmedicinal substance allergy status
CPT/HCPCS: 87480; 87491; 87510; 87591; 87660; 99212

== ENCOUNTER 2020-11-02 11:00 | Outpatient (RCR) | payer MEDICAID, SELFPAY ==
--- NOTE | 2020-11-13 12:26 | MHC.PT.DC ---
[facility] [place] Office [place] Office [place] Office [address] [phone] F: [phone] F: [phone] F: [phone] F: [phone] Physical Therapy Discharge Report Diagnosis: Acute midline LBP with bilateral sciatica Date of Surgery: Date of Evaluation: 09/28/20 Date of Discharge: 11/13/20 Treatments to Date: 5 Cancellations to Date: 1 No Shows to Date: 0 Discharge Status: Visit Non-compliance Discharge Summary: The patient has not called to follow up with further visits in over 10 days. She was reporting improvements in her back pain. She still demonstrates postural and functional weakness as seen by difficulty maintaining pelvic neutral and genu valgus tendencies. She is independent with her exercise program including a comprehensive core and pelvic stabilization program. She is discharged from this physical therapy plan of care at this time. Electronically signed by: Katharina Ahuja PT, DPT Please sign and return to therapist. Thank you for your referral.
== END 2020-11-13 12:29 | disposition other institution (70) ==
LOC: HO.PT 11:00
PROVIDERS: PCP Internal Medicine; Visit Provider Internal Medicine
DX: M54.42 Lumbago with sciatica, left side (principal)
CPT/HCPCS: 97110; 97112; 97161

== ENCOUNTER → 2020-11-23 10:24 | Outpatient (BNVA) | payer MEDICAID, SELFPAY | PROVIDERS: PCP Internal Medicine; Visit Provider Anesthesiology | DX: M47.817 Spondylosis without myelopathy or radiculopathy, lumbosacral region (principal); G89.4 Chronic pain syndrome; Z79.899 Other long term (current) drug therapy | CPT/HCPCS: 99202 ==

== ENCOUNTER 2020-11-27 13:13 | Emergency (ER) | payer MEDICAID, SELFPAY ==
--- NOTE | ~2020-11-27 | CT_ITS ---
EXAMINATION: CT ABDOMEN AND PELVIS WITH CONTRAST CLINICAL INFORMATION: Abdominal pain, nausea and vomiting COMPARISON: Previous CT of the abdomen and pelvis 09/02/2020 and abdominal ultrasound September 2020 TECHNIQUE: Multidetector volumetric images were obtained from the superior aspect of the liver through the pubic symphysis following administration 85 mL of Omnipaque 350 intravenous contrast. Sagittal and coronal reformatted images were obtained on the technologist's workstation. Oral contrast: Yes This CT examination was performed using dose optimization techniques as appropriate, variously including the following: *Automated exposure control *Adjustment of mA and/or kV according to patient size (this includes techniques or standardized protocols for targeted exams where dose is matched to indication/reason for exam; i.e. extremities or head) *Use of iterative reconstruction technique DLP: 412 mGy-cm FINDINGS: LUNG BASES: The visualized lung bases are unremarkable. LIVER, GALLBLADDER, AND BILIARY TREE: The liver is normal in shape, and attenuation. The liver is slightly enlarged, right lobe measuring 20 cm No focal hepatic lesion or biliary ductal dilatation is present. There is mild periportal edema. This is nonspecific finding. The gallbladder is unremarkable with no evidence of radiopaque gallstones, gallbladder wall thickening, or obvious pericholecystic inflammatory changes. PANCREAS: Unremarkable. SPLEEN: Unremarkable. ADRENAL GLANDS: Unremarkable. KIDNEYS AND URETERS: The kidneys are normal in size, shape, and attenuation. No hydronephrosis, hydroureter, or calculi seen. No perinephric stranding. BLADDER: Not optimally distended. GASTROINTESTINAL TRACT: There is question of mild bowel wall thickening/colitis of the colon versus changes due to underdistention. The small and large bowel are otherwise unremarkable. The appendix is unremarkable. ABDOMINAL WALL: No significant hernia is appreciated. LYMPH NODES: Normal. VASCULAR: Unremarkable. PELVIC VISCERA: The uterus and ovaries are unremarkable. There is a small amount of fluid in the pelvis. OSSEOUS STRUCTURES: Unremarkable. CT/CT abdomen pelvis w con IMPRESSION: Question of mild bowel wall thickening/colitis of the colon versus changes due to underdistention. Slightly enlarged liver. Mild periportal edema in the liver. This is a nonspecific finding most commonly seen with aggressive hydration and hepatitis. Correlation with liver function tests recommended.
[2020-11-27 13:25] VITALS: BP 131/57; PULSE 80; RESP 16; TEMP 36.6; O2SAT 100; BMI 23.5
--- NOTE | 2020-11-27 13:28 | ED_ITS ---
HPI - Abdominal Pain General Chief Complaint: Abdominal Pain Stated Complaint: N/V,ABD PAIN Time Seen by Provider: 11/27/20 13:24 Source: patient Mode of arrival: ambulatory Limitations: no limitations History of Present Illness HPI narrative: Patient presents to the ED for nausea, vomiting, diarrhea, abdominal pain since this morning. Patient states also stating having hot and chills. Patient unaware of any recorded fever. Patient denies any dysuria, hematuria, flank pain, chest pain, coughing, or shortness of breath. MD elicited complaint: abdominal pain Related Data Home Medications Medication Instructions Recorded Confirmed medroxyprogesterone 150 mg/mL 150 mg IM [id number] 09/11/20 11/23/20 intramuscular suspension Previous Rx's Medication Instructions Recorded omeprazole 20 mg PO BID #60 cap 09/06/20 tizanidine 4 mg tablet 4 mg PO TID PRN #90 tab 11/23/20 ciprofloxacin HCl [Cipro] 500 mg PO Q12H 7 Days #14 tab 11/27/20 metronidazole 500 mg PO Q12H #14 tab 11/27/20 naproxen 500 mg PO BID PRN #20 tab 11/27/20 Allergies Allergy/AdvReac Type Severity Reaction Status Date / Time cyclobenzaprine Allergy Unknown RASH Verified 11/23/20 10:44 [From FLEXERIL] Penicillins [PENICILLINS] Allergy Unknown RASH Verified 11/23/20 10:44 aloe vera [Flexall] AdvReac Intermediate n/v Verified 11/23/20 10:44 menthol [Flexall] AdvReac Intermediate n/v Verified 11/23/20 10:44 vitamin E (d-alpha AdvReac Intermediate n/v Verified 11/23/20 10:44 tocopherol) [Flexall] Review of Systems Review of Systems Yes all other systems are reviewed and are negative Constitutional: Reports as per HPI and Reports no additional constitutional complaints Eyes: Reports as per HPI and Reports no additional eye complaints Reports system reviewed and no additional complaints, except as documented and Reports as per HPI Cardiovascular: Reports as per HPI and Reports no additional cardiovascular complaints Respiratory: Reports as per HPI and Reports no additional respiratory complaints Gastrointestinal: Reports as per HPI, Reports no additional gastrointestinal complaints, Reports abdominal pain, Reports diarrhea, Reports nausea and Reports vomiting Genitourinary: Reports no additional female genitourinary complaints and Reports as per HPI Musculoskeletal: Reports no additional musculoskeletal complaints and Reports as per HPI Reports system reviewed and no additional complaints, except as documented and Reports as per HPI Psychiatric: Reports no additional psychiatric complaints and Reports as per [facility] Physical Exam Vital Signs: Vital Signs: Last Vital Signs Temp 98 F 11/27/20 13:25 Pulse 80 11/27/20 13:25 Resp 16 11/27/20 13:25 BP 131/57 L 11/27/20 13:25 Pulse Ox 100 11/27/20 13:25 Body Mass Index 23.5 Const: General: cooperative, healthy appearing, comfortable, well developed, alert, awake and acute distress Orientation/consciousness: patient oriented x3 HENMT: Head: Yes normal to inspection, Yes No palpable skull fracture present, Yes normocephalic, Yes atraumatic and No abrasion Eyes: General: appearance normal, both eyes and all related structures Neck: Neck: Yes normal visual inspection, Yes full ROM, Yes no lymphadenopathy, Yes no meningeal signs, Yes trachea midline, Yes supple and No tender Chest: Chest palpation & inspection: normal inspection of the chest and normal palpation of entire chest wall Resp: Effort & Inspection: normal respiratory effort and able to speak in complete sentences Auscultation: clear to auscultation bilaterally Cardio: Jugular venous distension: no JVD Heart sounds: S1 normal heart sound present and S2 normal heart sound present GI: Inspection: Yes normal to inspection and No abdominal wall ecchymosis Palpation (GI): not firm, Tenderness to palpation present (GI) (Generalized), no guarding and not rigid : General: No CVA tenderness and Yes no CVA tenderness Back/Spine/Pelvis: Back: no CVA tenderness, No CVA tenderness and No back tenderness Skin: General skin exam: no rashes or lesions noted and elasticity normal Neuro: General: patient oriented x3, no meningeal signs and CN's II-XI intact bilaterally Cranial nerves: Yes CN's II-XII intact bilaterally Extrem: General: Yes normal to inspection and Yes full ROM Psych: Appearance: grossly normal, well kempt and not disheveled Course Course Course Narrative: Patient will have labs drawn and given fluid GI cocktail. Patient will be re-evaluated. Reevaluation(s) Reevaluation #1: Vital signs are stable. Labs do not show any elevated white blood cell count or electrolyte abnormality. Will send patient for CT scan due to patient complaining of abdominal pain, diarrhea, nausea, vomiting. Reevaluation #2: Eduring the shift patient informed that she would like to go because her belly pain improved she states she has had these episodes before in the past and are a part of her anxiety. She just feel nauseous and times from constant vomiting. I spoke to patient due to initial presentation CT scans for firm to make sure there is no medical/surgical etiology. Patient informed me she had a dog bite yesterday on her left wrist which is very superficial. Patient was seen at [facility], but was not discharged with any antibiotics or rabies injection. 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 Patient states she was bit by the dog because he was trying to cut the dog's nail and the dog got upset. She states dog is at the pet shop and will be able to be evaluated for 10 days. Patient informed his CT scan does not show any life-threatening surgical/medical etiology and she is discharged she should evaluate and look at dog for symptoms. Patient explains signs of sympto ms of rabies in dogs. Patient denies having any paresthesia around area of bite or paresthesia of lips or elsewhere or elsewhere on her body. Left upper extremity was evaluated and negative for any erythema, swelling, fluctuance, foul odor, pus discharge, or mass on palpation Reevaluation #3: CT scan shows possible colitis. Will send patient with antibiotics. Patient to be discharged. Vital signs stable. Patient allergic to penicillin. Patient discharged with Cipro and metronidazole which will be good for colitis and dog bite. MDM - Abdominal Pain MDM Narrative Medical decision making narrative: Colitis Lab Data Result diagrams: 11/27/20 13:43 11/27/20 13:43 Labs: Lab Results 11/27/20 11/27/20 11/27/20 Range/Units 13:43 13:43 13:43 WBC 6.1 (4.8-10.8) X10*3/uL RBC 4.16 L (4.20-5.50) X10*6/uL Hgb 13.9 (12.0-16.0) g/dl Hct 41.9 (37-47) % MCV 100.7 H (80-98) fL MCH 33.4 H (27.0-33.0) pg MCHC 33.2 (31.0-35.0) g/dl RDW 13.3 (11.0-16.0) % Plt Count 256 D (160-400) X10*3/uL MPV 8.9 L (9.4-12.3) fL Immature Gran % (Auto) 0.3 (0.0-0.4) % Neut % (Auto) 90.5 H (45-73) % Lymph % (Auto) 8.1 L (20-40) % [place] % (Auto) 0.7 L (2-11) % Eos % (Auto) 0.2 (0-4) % Baso % (Auto) 0.2 (0-2) % Lymph # (Auto) 0.5 L (1.2-4.9) X10*3/uL [place] # (Auto) 0.0 L (0.1-1.2) X10*3/uL Eos # (Auto) 0.0 (0.0-0.4) X10*3/uL Baso # (Auto) 0.0 (0.0-0.2) X10*3/uL Abs Immat Gran (auto) 0.02 (0.00-0.03) X10*3/uL Absolute Neuts (auto) 5.5 (2.0-8.3) X10*3/uL Absolute Nucleated RBC 0.000 (0.0-0.012) X10*3/uL Nucleated RBC % (auto) 0.0 (0.0-0.2) /100WBC Smear Tech's Comments VERIFIED PT (10.8-13.0) SEC INR (0.9-1.1) APTT (24.1-38.0) SEC Sodium 140 (135-145) mmol/L Potassium 4.5 (3.3-5.1) mmol/L Chloride 110 H (96-108) mmol/L Carbon Dioxide 19 L (22-29) mmol/L Anion Gap 16 (12-20) BUN 15 D (9-16) mg/dL Creatinine 0.81 (0.5-1.4) mg/dL Estim Creat Clear Calc 90.0 Estimated GFR > 60 Random Glucose 129 H D (60-115) mg/dL Calcium 9.2 D (8.4-10.2) mg/dL Total Bilirubin 0.5 (0.0-1.0) mg/dL Direct Bilirubin 0.2 (0.0-0.5) mg/dL AST 18 D (5-31) U/L ALT 13 (0-31) U/L Alkaline Phosphatase 41 (39-117) U/L Total Protein 7.3 (6.5-8.0) g/dL Albumin 4.5 D (3.5-5.0) g/dL Lipase 42 (8-78) U/L Beta HCG, Quant < 2 mIU/mL Urine Color Urine Appearance Urine pH (5.0-8.0) Ur Specific [place] (1.005-1.025) Urine Protein (NEG-TRACE) MG/DL Urine Glucose (UA) (NEG) MG/DL Urine Ketones (NEG) MG/DL Urine Blood (NEG) Urine Nitrite (NEG) Ur Leukocyte Esterase (NEG) Urine RBC (0) /HPF Urine WBC (0-4) /HPF Ur Squamous Epith Cells /LPF Amorphous Sediment /LPF Urine Bacteria /LPF Urine Mucus /LPF Coronavirus (PCR) NEGATIVE (Negative) Influenza Type A (PCR) NEGATIVE (Negative) Influenza Type B (PCR) NEGATIVE (Negative) RSV RNA Qual (PCR) NEGATIVE (Negative) 11/27/20 11/27/20 Range/Units 13:43 16:41 WBC (4.8-10.8) X10*3/uL RBC (4.20-5.50) X10*6/uL Hgb (12.0-16.0) g/dl Hct (37-47) % MCV (80-98) fL MCH (27.0-33.0) pg MCHC (31.0-35.0) g/dl RDW (11.0-16.0) % Plt Count (160-400) X10*3/uL MPV (9.4-12.3) fL Immature Gran % (Auto) (0.0-0.4) % Neut % (Auto) (45-73) % Lymph % (Auto) (20-40) % [place] % (Auto) (2-11) % Eos % (Auto) (0-4) % Baso % (Auto) (0-2) % Lymph # (Auto) (1.2-4.9) X10*3/uL [place] # (Auto) (0.1-1.2) X10*3/uL Eos # (Auto) (0.0-0.4) X10*3/uL Baso # (Auto) (0.0-0.2) X10*3/uL Abs Immat Gran (auto) (0.00-0.03) X10*3/uL Absolute Neuts (auto) (2.0-8.3) X10*3/uL Absolute Nucleated RBC (0.0-0.012) X10*3/uL Nucleated RBC % (auto) (0.0-0.2) /100WBC Smear Tech's Comments PT 12.9 (10.8-13.0) SEC INR 1.1 (0.9-1.1) APTT 27.6 (24.1-38.0) SEC Sodium (135-145) mmol/L Potassium (3.3-5.1) mmol/L Chloride (96-108) mmol/L Carbon Dioxide (22-29) mmol/L Anion Gap (12-20) BUN (9-16) mg/dL Creatinine (0.5-1.4) mg/dL Estim Creat Clear Calc Estimated GFR Random Glucose (60-115) mg/dL Calcium (8.4-10.2) mg/dL Total Bilirubin (0.0-1.0) mg/dL Direct Bilirubin (0.0-0.5) mg/dL AST (5-31) U/L ALT (0-31) U/L Alkaline Phosphatase (39-117) U/L Total Protein (6.5-8.0) g/dL Albumin (3.5-5.0) g/dL Lipase (8-78) U/L Beta HCG, Quant mIU/mL Urine Color YELLOW Urine Appearance HAZY Urine pH 6.0 (5.0-8.0) Ur Specific [place] 1.025 (1.005-1.025) Urine Protein NEG (NEG-TRACE) MG/DL Urine Glucose (UA) NEG (NEG) MG/DL Urine Ketones 15 (NEG) MG/DL Urine Blood 1+ H (NEG) Urine Nitrite NEG (NEG) Ur Leukocyte Esterase NEG (NEG) Urine RBC 0-2 (0) /HPF Urine WBC 0-2 (0-4) /HPF Ur Squamous Epith Cells 2+ /LPF Amorphous Sediment TRACE /LPF Urine Bacteria 1+ /LPF Urine Mucus 4+ /LPF Coronavirus (PCR) (Negative) Influenza Type A (PCR) (Negative) Influenza Type B (PCR) (Negative) RSV RNA Qual (PCR) (Negative) Discharge Plan Discharge Clinical Impression: Colitis Patient Disposition: Home, Self-Care Instructions: Colitis (ED) Additional Instructions: Return to the ED immediately for worsening abdominal pain, nausea, vomiting, weakness, inability tolerate solid food,/liquid, blood in stool, or any other concerning symptoms. A COVID swab came back negative. Your blood work came back normal. Abdominal CT scan shows colitis. Were seen at [facility] for dog bite yesterday. Return to the ED for area of dog bite negative for any redness, swelling, redness, pus discharge, or foul odor. Recommend BRAT (Bannanas, Rice, Apple sauce, [place]) Prescriptions: New metronidazole 500 mg tablet 500 mg PO Q12H Qty: 14 RF: 0 ciprofloxacin HCl [Cipro] 500 mg tablet 500 mg PO Q12H 7 Days Qty: 14 RF: 0 naproxen 500 mg tablet 500 mg PO BID PRN (Reason: pain) Qty: 20 RF: 0 No Action omeprazole 20 mg capsule,delayed release(DR/EC) 20 mg PO BID Qty: 60 RF: 1 medroxyprogesterone [Depo-Provera] 150 mg/mL suspension 150 mg IM [id number] RF: 0 tizanidine 4 mg tablet 4 mg PO TID PRN (Reason: muscle spasticity) Qty: 90 RF: 6 Referrals: Augustin Fowler MD [Primary Care Provider] - 2 days (Colitis) Interventions: ED Discharge Assessment Last Done: 11/27/20 18:13 Discharge Date/Time: 11/27/20 18:13 Print Language: [place] [facility] Past Medical History Medical History (Updated 11/27/20 @ 17:42 by SHAN Ramirez) Acid reflux Asthma Bulging disc Chronic pain syndrome Hiatal hernia Smoker Spondylosis of lumbosacral spine without myelopathy Urinary tract infection Social History Social History Do you presently have visiting nurse or other home services: No Smoking Status: Current every day smoker Tobacco Type: Cigarette Second Hand Smoke Exposure: No Substance Use Type: Marijuana Advance Directives: No Advance Directives Information Provided: No Patient : No Current occupational status: unemployed
[2020-11-27 13:54] LABS: Basophils Percent Auto 0.2 % (0-2); Eosinophils Percent Auto 0.2 % (0-4); Hematocrit 41.9 % (37-47); Hemoglobin 13.9 g/dl (12.0-16.0); Imm Gran Abs Auto 0.02 X10*3/uL (0.00-0.03); Imm Gran Pct Auto 0.3 % (0.0-0.4); Lymphocytes Absolute Auto 0.5 X10*3/uL (1.2-4.9); Lymphocytes Percent Auto 8.1 % (20-40); MANUAL DIFF FLAG SCAN; Mean Corpuscular HGB Conc 33.2 g/dl (31.0-35.0); Mean Corpuscular Hemoglobin 33.4 pg (27.0-33.0); Mean Corpuscular Volume 100.7 fL (80-98); Mean Platelet Volume 8.9 fL (9.4-12.3); Monocytes Percent Auto 0.7 % (2-11); Neutrophils Absolute Auto 5.5 X10*3/uL (2.0-8.3); Neutrophils Percent Auto 90.5 % (45-73); Platelet Count 256 X10*3/uL (160-400); Red Blood Count 4.16 X10*6/uL (4.20-5.50); Red Cell Distribution Width 13.3 % (11.0-16.0); SCAN SMEAR FLAG 1; White Blood Count 6.1 X10*3/uL (4.8-10.8)
[2020-11-27] MEDS: ondansetron HCL 4 MG/2 ML VIAL IVPUSH (13:58)
[2020-11-27] MEDS: 0.9 % Sodium Chloride 1,000 ML 999 ML IV ×2 (13:58)
[2020-11-27] MEDS: Famotidine/PF 20 MG/2 ML VIAL IVPUSH (13:58)
[2020-11-27 14:05] LABS: INTERNATIONAL NORM RATIO 1.1 (0.9-1.1); Prothrombin Time 12.9 SEC (10.8-13.0)
[2020-11-27 14:08] LABS: Partial Thromboplastin Time 27.6 SEC (24.1-38.0)
[2020-11-27 14:18] LABS: Alanine Aminotransferase 13 U/L (0-31); Albumin Level 4.5 g/dL (3.5-5.0); Alkaline Phosphatase 41 U/L (39-117); Anion Gap 16 (12-20); Aspartate Amino Transferase 18 U/L (5-31); Bilirubin Direct 0.2 mg/dL (0.0-0.5); Bilirubin Total 0.5 mg/dL (0.0-1.0); Blood Urea Nitrogen 15 mg/dL (9-16); Calcium 9.2 mg/dL (8.4-10.2); Carbon Dioxide 19 mmol/L (22-29); Chloride 110 mmol/L (96-108); Estimated Glomerular Filt Rate > 60; Glucose Random 129 mg/dL (60-115); Lipase 42 U/L (8-78); Potassium 4.5 mmol/L (3.3-5.1); Sodium 140 mmol/L (135-145); Total Protein 7.3 g/dL (6.5-8.0)
[2020-11-27 14:24] LABS: HCG Quantitative < 2 mIU/mL
[2020-11-27 14:29] LABS: Influenza A PCR NEGATIVE (Negative); Influenza B PCR NEGATIVE (Negative); Resp Syncy Virus RNA Qual PCR NEGATIVE (Negative); SARS COV2 PCR INHOUSE NEGATIVE (Negative)
[2020-11-27 14:33] LABS: SLIDE REVIEW VERIFIED
[2020-11-27] MEDS: iohexoL 350 MG/ML 100 ML INFUS..BTL IV (16:31)
[2020-11-27 16:51] LABS: Appearance Urine HAZY; Color Urine YELLOW; Glucose Urine UA NEG (NEG); Leukocyte Esterase Urine NEG (NEG); Nitrite Urine NEG (NEG); Specific Gravity - Urine 1.025 (1.005-1.025); Urine Blood 1+ (NEG); Urine Ketones 15 MG/DL (NEG); Urine Protein NEG (NEG-TRACE)
[2020-11-27 17:00] LABS: Amorphous Sediment Urine TRACE /LPF; Bacteria Urine 1+ /LPF; Mucus Urine 4+ /LPF; RBC Urine 0-2 /HPF (0); Squamous Epithelial Cell Urine 2+ /LPF; WBC Urine 0-2 /HPF (0-4)
== END 2020-11-27 18:13 | disposition home or self-care (01) ==
PROVIDERS: Physician Assistant; Emergency Provider Emergency Medicine; PCP Internal Medicine
DX: K52.9 Noninfective gastroenteritis and colitis, unspecified (principal); R10.9 Unspecified abdominal pain; S60.872A Other superficial bite of left wrist, initial encounter; W54.0XXA Bitten by dog, initial encounter; Y93.K3 Activity, grooming and shearing an animal; Y92.512 Supermarket, store or market as the place of occurrence of the external cause; Y99.0 Civilian activity done for income or pay
CPT/HCPCS: 0241U; 36415; 74177; 80053; 80076; 81001; 82248; 83690; 84702; 85025; 85610; 85730; 96361; 96374; 96375; 99283; 99284; J2405; Q9967

== ENCOUNTER 2021-01-11 09:03 | Outpatient (REF) | payer MEDICAID, SELFPAY ==
[2021-01-12 11:36] LABS: BV Int Neg Control Negative (Negative); BV Int Pos Control Positive (Positive)
[2021-01-12 11:47] LABS: CT PCR NOT DETECTED (Not Detect.); NG PCR NOT DETECTED (Not Detect.)
== END 2021-01-11 09:04 | disposition home or self-care (01) ==
LOC: HO.LAB 09:03
PROVIDERS: PCP Internal Medicine; Visit Provider Obstetrics & Gynecology
DX: Z11.3 Encounter for screening for infections with a predominantly sexual mode of transmission (principal); Z86.19 Personal history of other infectious and parasitic diseases
CPT/HCPCS: 87480; 87491; 87510; 87591; 87660; 99212

== ENCOUNTER 2022-12-16 11:48 | Emergency (ER) | payer MEDICAID, SELFPAY ==
--- NOTE | ~2022-12-16 | XR_ITS ---
EXAMINATION: XR LUMBOSACRAL SPINE CLINICAL INFORMATION: Pain COMPARISON: Previous x-ray August 2020 and September 2019 TECHNIQUE: Three views of the lumbosacral spine. FINDINGS: The vertebral bodies and posterior elements are normal. The disc spaces are preserved and the vertebral alignment is normal. The paraspinal soft tissues are normal. XR/XR lumbar spine 2-3V IMPRESSION: Unremarkable examination.
--- NOTE | 2022-12-16 11:55 | ED_ITS ---
HPI - Nausea/Vomiting/Diarrhea General Chief complaint: Abdominal Pain Stated complaint: Vomiting/Diarrhea Time Seen by Provider: 12/16/22 14:02 Source: patient Mode of arrival: ambulatory Limitations: no limitations History of Present Illness HPI Narrative: Patient is a 27 year old assigned female at with a history of asthma and chronic pain syndrome presenting to the emergency department today with nausea a nd vomiting. Patient states that she has been having nausea, vomiting, and diarrhea for 1 week. Patient states that she was getting worked up by her PCP for low back pain and believes she had a lumbar XR ordered for here. Patient states that she would like to have that done while she is here. Patient denies any dizziness, lightheadedness, abdominal pain, fever, chills, blurry vision, double vision, loss of vision, chest pain, difficulty breathing, shortness of breath, back pain, night sweats, pain with urination, increased urinary frequency, increased urinary urgency, blood in her urine or stool, syncope or a near syncopal episode, recent trauma or falls, bowel incontinence, bladder incontinence, bowel retention, bladder retention, or any other complaints at this time. MD elicited complaint: nausea, vomiting and diarrhea Onset (ago): week(s) (1) Associated nausea: Yes Associated abdominal pain: No Severity: mild Related Data Home Medications Medication Instructions Recorded Confirmed medroxyprogesterone 150 mg/mL 150 mg IM [id number] 09/11/20 11/23/20 intramuscular suspension (Depo-Provera) Previous Rx's Medication Instructions Recorded omeprazole 20 mg capsule,delayed 20 mg PO BID #60 caps 09/06/20 release tizanidine 4 mg tablet 4 mg PO TID PRN muscle spasticity 11/23/20 #90 tabs naproxen 500 mg tablet 500 mg PO BID PRN pain #20 tabs 11/27/20 ondansetron 4 mg disintegrating 4 mg PO Q8H 3 days #9 tabs 12/16/22 tablet Allergies Allergy/AdvReac Type Severity Reaction Status Date / Time cyclobenzaprine Allergy Unknown RASH Verified 12/16/22 11:55 [From FLEXERIL] Penicillins [PENICILLINS] Allergy Unknown RASH Verified 12/16/22 11:55 aloe vera [Flexall] AdvReac Intermediate n/v Verified 12/16/22 11:55 menthol [Flexall] AdvReac Intermediate n/v Verified 12/16/22 11:55 vitamin E (d-alpha AdvReac Intermediate n/v Verified 12/16/22 11:55 tocopherol) [Flexall] Review of Systems Constitutional: Constitutional: Reports no additional constitutional complaints, Denies chills, Denies fever(s) and Denies night sweats Eyes: Eyes: Reports no additional eye complaints, Denies blurry vision, Denies change in vision, Denies diplopia, Denies eye discharge, Denies loss of vision and Denies eye pain ENT: Denies dizziness Cardiovascular: Cardiovascular: Reports no additional cardiovascular complaints, Denies chest pain, Denies lightheadedness, Denies Loss of Consciousness and Denies dyspnea Respiratory: Respiratory: Reports no additional respiratory complaints and Denies dyspnea Gastrointestinal: Gastrointestinal: Reports diarrhea, Reports nausea and Reports vomiting Genitourinary: Genitourinary: Denies hematuria, Denies urinary frequency, Denies dysuria, Denies urinary incontinence, Denies urinary hesitancy and Denies urinary urgency Musculoskeletal: Musculoskeletal: Reports no additional musculoskeletal complaints, Denies numbness and Denies tingling Neurologic: Denies dizziness, Denies loss of vision, Denies numbness and Denies tingling Psychiatric: Psychiatric: Reports no additional psychiatric complaints Endocrine: Endocrine: Reports no additional endocrine complaints Hematologic/Lymphatic: Hematologic/Lymphatic: Reports no additional hematologic/lymphatic complaints Allergic/Immunologic: Allergic/Immunologic: Reports no additional allergic/immunologic complaints [facility] Past Medical History Attestation statement: The following information was validated with the patient. Source: old records reviewed and nursing notes reviewed Medical History Acid reflux Asthma Bulging disc Chronic pain syndrome Hiatal hernia Smoker Spondylosis of lumbosacral spine without myelopathy Urinary tract infection Social History Social History Do you presently have visiting nurse or other home services: No Alcohol intake: current Alcohol intake frequency: a few times a month Smoked in Last 30 Days: Yes Second Hand Smoke Exposure: No Use of substances other than those prescribed or required for medical reasons: Yes Substance Use Type: Marijuana Substance Use Frequency: Daily Advance Directives: No Advance Directives Information Provided: Yes Patient : No Current occupational status: unemployed Physical Exam Vital Signs: Vital Signs: Last Vital Signs Temp 98.7 F 12/16/22 15:45 Pulse 71 12/16/22 15:45 Resp 16 12/16/22 15:45 BP 110/68 12/16/22 15:45 Pulse Ox 98 12/16/22 15:45 O2 Del Method Room Air 12/16/22 15:45 BMI result Body Mass Index 26.9 Const: General: cooperative, no acute distress, alert and awake Nutritional Appearance: well nourished Orientation/consciousness: patient oriented x3 Limitations: no limitations HEENT: Head: Yes normal to inspection and Yes atraumatic Ears: hearing grossly normal bilaterally and external ears normal General nose exam: Normal external nose present, no nasal discharge noted and no epistaxis Face and sinus: Yes normal facial exam, No abrasion and No laceration Mouth: Normal oral and palatal mucosa present, no drooling and no muffled voice Eyes: General: appearance normal, both eyes and all related structures Periorbital: periorbital findings normal Eyelids: Yes eyelids normal Conjunctivae: conjunctivae normal Pupils: Equal, round and reactive pupils present EOM: EOMs intact bilaterally Neck: Neck: Yes normal visual inspection, Yes full ROM and Yes no lymphade nopathy Chest: Chest palpation & inspection: normal inspection of the chest Resp: Effort & Inspection: normal respiratory effort and able to speak in complete sentences Auscultation: clear to auscultation bilaterally Cardio: Rate: regular rate Rhythm: regular rhythm GI: Inspection: Yes normal to inspection Palpation (GI): Soft to palpation, not firm, nontender, no guarding and not rigid Neuro: General: patient oriented x3 and moves all extremities Cranial nerves: Yes Equal, round and reactive pupils present Cognition (Neuro): normal cognition Motor exam (neuro): 5/5 motor strength present throughout Sensory Exam: Normal double simultaneous stimulation for sensation Coordination: [id number] test normal Extrem: General: Yes normal to inspection, Yes full ROM and Yes capillary refill normal Psych: Appearance: grossly normal Mental Status: mental status grossly normal Affect: normal affect Attitude: cooperative Thought process: Normal thought process present Thought content: Normal thought content present Insight: Good insight present (Psych) Course Course Course Narrative: RME: 27yo F w/PMHx asthma, GERD, hiatial hernia, c/o nausea, vomiting and diarrhea x1 week w/decreased PO intake. Admits to 2 episodes of emesis daily, and at least one of diarrhea, nonbloody. LMP unknown, on Depo Abdomen soft, nontender Labs, UA, IVF ordered Full HPI, ROS and PE to be performed by primary ED provider. Medications Administered Discontinued Medications Generic Name Dose Route Start Last Admin Trade Name Jordy PRN Reason Stop Dose Admin Sodium Chloride 1,000 mls @ 999 mls/hr 12/16/22 12:00 12/16/22 14:27 Ns IV 12/16/22 13:00 Not Given .Q1H1M KALEB Sodium Chloride 1,000 mls @ 999 mls/hr 12/16/22 14:15 12/16/22 15:41 Ns IV 12/16/22 15:15 Infused .Q1H1M KALEB Infusion Ondansetron HCl 4 mg 12/16/22 14:15 12/16/22 14:32 Ondansetron Hcl 4 Mg/2 Ml Vial IVPUSH 12/16/22 14:16 4 mg ONCE ONE Administration Medical Decision Making Medical Decision Making [facility] Narrative: Patient is a 27 year old assigned female at with a history of asthma and chronic pain syndrome presenting to the emergency department today with nausea and vomiting. Patient's physical exam was as noted in the physical exam portion of this chart. Patient's blood work was unremarkable. Patient's urine showed no acute process. Patient's lumbar x-ray showed no acute process. I explained my physical exam findings as well as all test results to the patient. I answered all questions asked by the patient. Patient received IV fluids and anti-emetics which she stated helped her symptoms significantly. I stressed the importance of the patient taking her medication as prescribed. I stressed the importance of the patient following up with her primary care provider. I stressed the importance of the patient returning to the emergency department immediately if her symptoms were to worsen or if she were to develop any dizziness, shortness of breath, difficulty breathing, chest pain, blurry vision, loss of vision, nausea, vomiting, abdominal pain, fever, chills, back pain, or any other complaints. Patient verbalized agreement and understanding with this treatment plan and discharge. Differential Diagnosis Differential Diagnoses: The differential diagnosis associated with the presentation includes nausea, vomiting, gastroenteritis Admission/Observation Consideration of admission/observation: Escalation of care including a dmission/observation considered Patient would have been admitted to the hospital had her work up had any findings where hospital admission was appropriate. Lab Data MDM Lab Attestation statement: I reviewed the patient's lab results. My interpretation of these studies and their corresponding values is that they a re grossly normal. 12/16/22 12:05 12/16/22 12:05 Labs: Lab Results 12/16/22 12/16/22 12/16/22 Range/Units 12:05 12:05 15:48 WBC 7.7 (4.8-10.8) X10*3/uL RBC 4.15 L (4.20-5.50) X10*6/uL Hgb 13.7 (12.0-16.0) g/dl Hct 39.7 (37.0-47.0) % MCV 95.7 (80.0-98.0) fL MCH 33.0 (27.0-33.0) pg MCHC 34.5 (31.0-35.0) g/dl RDW 12.9 (11.0-16.0) % Plt Count 321 (160-400) X10*3/uL MPV 9.0 L (9.4-12.3) fL Immature Gran % (Auto) 0.3 (0.0-0.4) % Neut % (Auto) 64.5 (45-73) % Lymph % (Auto) 24.5 (20-40) % [place] % (Auto) 8.7 (2-11) % Eos % (Auto) 1.2 (0-4) % Baso % (Auto) 0.8 (0-2) % Lymph # (Auto) 1.9 (1.2-4.9) X10*3/uL [place] # (Auto) 0.7 (0.1-1.2) X10*3/uL Eos # (Auto) 0.1 (0.0-0.4) X10*3/uL Baso # (Auto) 0.1 (0.0-0.2) X10*3/uL Abs Immat Gran (auto) 0.02 (0.00-0.03) X10*3/uL Absolute Neuts (auto) 5.0 (2.0-8.3) x10*3/uL Absolute Nucleated RBC 0.000 (0.0-0.012) X10*3/uL Nucleated RBC % (auto) 0.0 (0.0-0.2) /100WBC Sodium 140 (135-145) mmol/L Potassium 4.3 (3.3-5.1) mmol/L Chloride 111 H (96-108) mmol/L Carbon Dioxide 20 L (22-29) mmol/L Anion Gap 13 (12-20) BUN 11 (9-16) mg/dL Creatinine 0.80 (0.5-1.4) mg/dL Estim Creat Clear Calc 100.4 Estimated GFR > 60 Random Glucose 91 (60-115) mg/dL Calcium 9.3 (8.4-10.2) mg/dL Magnesium 2.2 (1.6-2.6) mg/dL Total Bilirubin 0.6 (0.0-1.0) mg/dL Direct Bilirubin 0.2 (0.0-0.5) mg/dL AST 14 (5-31) U/L ALT 11 (0-31) U/L Alkaline Phosphatase 59 (39-117) U/L Total Protein 7.3 (6.5-8.0) g/dL Albumin 4.6 (3.5-5.0) g/dL Lipase 16 (8-78) U/L Beta HCG, Quant < 2 mIU/mL Urine Color Yellow Urine Appearance Clear Urine pH 5.5 (5.0-9.0) Ur Specific [place] 1.025 (1.005-1.025) Urine Protein Negative (Neg-Trace) mg/dL Urine Glucose (UA) Negative (Negative) mg/dL Urine Ketones 40 (Negative) mg/dL Urine Blood Moderate (2+) H (Negative) Urine Nitrite Negative (Negative) Ur Leukocyte Esterase Negative (Negative) Urine RBC 11-20 H (0-2) /HPF Urine WBC 0-5 (0-5) /HPF Ur Squamous Epith Cells 11-20 (0-2) /HPF Urine Bacteria 1+ (None Seen) Hyaline Casts 0-2 (0-2) /LPF Urine Test (NEGATIVE) 12/16/22 Range/Units 15:48 WBC (4.8-10.8) X10*3/uL RBC (4.20-5.50) X10*6/uL Hgb (12.0-16.0) g/dl Hct (37.0-47.0) % MCV (80.0-98.0) fL MCH (27.0-33.0) pg MCHC (31.0-35.0) g/dl RDW (11.0-16.0) % Plt Count (160-400) X10*3/uL MPV (9.4-12.3) fL Immature Gran % (Auto) (0.0-0.4) % Neut % (Auto) (45-73) % Lymph % (Auto) (20-40) % [place] % (Auto) (2-11) % Eos % (Auto) (0-4) % Baso % (Auto) (0-2) % Lymph # (Auto) (1.2-4.9) X10*3/uL [place] # (Auto) (0.1-1.2) X10*3/uL Eos # (Auto) (0.0-0.4) X10*3/uL Baso # (Auto) (0.0-0.2) X10*3/uL Abs Immat Gran (auto) (0.00-0.03) X10*3/uL Absolute Neuts (auto) (2.0-8.3) x10*3/uL Absolute Nucleated RBC (0.0-0.012) X10*3/uL Nucleated RBC % (auto) (0.0-0.2) /100WBC Sodium (135-145) mmol/L Potassium (3.3-5.1) mmol/L Chloride (96-108) mmol/L Carbon Dioxide (22-29) mmol/L Anion Gap (12-20) BUN (9-16) mg/dL Creatinine (0.5-1.4) mg/dL Estim Creat Clear Calc Estimated GFR Random Glucose (60-115) mg/dL Calcium (8.4-10.2) mg/dL Magnesium (1.6-2.6) mg/dL Total Bilirubin (0.0-1.0) mg/dL Direct Bilirubin (0.0-0.5) mg/dL AST (5-31) U/L ALT (0-31) U/L Alkaline Phosphatase (39-117) U/L Total Protein (6.5-8.0) g/dL Albumin (3.5-5.0) g/dL Lipase (8-78) U/L Beta HCG, Quant mIU/mL Urine Color Urine Appearance Urine pH (5.0-9.0) Ur Specific [place] (1.005-1.025) Urine Protein (Neg-Trace) mg/dL Urine Glucose (UA) (Negative) mg/dL Urine Ketones (Negative) mg/dL Urine Blood (Negative) Urine Nitrite (Negative) Ur Leukocyte Esterase (Negative) Urine RBC (0-2) /HPF Urine WBC (0-5) /HPF Ur Squamous Epith Cells (0-2) /HPF Urine Bacteria (None Seen) Hyaline Casts (0-2) /LPF Urine Test NEGATIVE (NEGATIVE) Independent Interpretation I performed an independent interpretation of an: Plain X-Ray Interpretation: My interpretation is in agreement with the radiologist's impression of this imaging study. EXAMINATION: XR LUMBOSACRAL SPINE CLINICAL INFORMATION: Pain COMPARISON: Previous x-ray August 2020 and September 2019 TECHNIQUE: Three views of the lumbosacral spine. FINDINGS: The vertebral bodies and posterior elements are normal. The disc spaces are preserved and the vertebral alignment is normal. The paraspinal soft tissues are normal. XR/XR lumbar spine 2-3V IMPRESSION: Unremarkable examination. Dictated By: Zainab Munoz MD Signed By: Electronically signed by Zainab Munoz MD 12/16/22 [id number] Discharge Plan Discharge Clinical Impression: Nausea & vomiting Patient Disposition: Home, Self-Care Instructions: Acute Nausea and Vomiting (ED) Additional Instructions: Follow up with your primary care provider. Return to the emergency department immediately if your symptoms worsen or if you develop any dizziness, shortness of breath, difficulty breathing, chest pain, blurry vision, loss of vision, nausea, vomiting, abdominal pain, fever, chills, back pain, or any other complaints. Prescriptions: New ondansetron 4 mg tablet,disintegrating 4 mg PO Q8H 3 Days Qty: 9 0RF No Action omeprazole 20 mg capsule,delayed release(DR/EC) 20 mg PO BID Qty: 60 1RF naproxen 500 mg tablet 500 mg PO BID PRN (Reason: pain) Qty: 20 0RF medroxyprogesterone [Depo-Provera] 150 mg/mL suspension 150 mg IM [id number] tizanidine 4 mg tablet 4 mg PO TID PRN (Reason: muscle spasticity) Qty: 90 6RF Rx Instructions: Patient may take 1 or 2 pills at night if it will help her to rest at night. She can also divide pills if the sedation from the pill take prevents her from functioning normally. Referrals: Augustin Fowler MD [Primary Care Provider] - Stand Alone Forms: Work/School Release Interventions: ED Discharge Assessment Last Done: 12/16/22 16:14 Discharge Date/Time: 12/16/22 16:14 Print Language: Afghan
[2022-12-16 11:56] VITALS: BP 106/66; PULSE 101; RESP 19; TEMP 37; O2SAT 99; BMI 26.9
[2022-12-16 12:10] LABS: MANUAL DIFF FLAG NO
[2022-12-16 12:14] LABS: Basophils Absolute Auto 0.1 X10*3/uL (0.0-0.2); Basophils Percent Auto 0.8 % (0-2); Eosinophils Absolute Auto 0.1 X10*3/uL (0.0-0.4); Eosinophils Percent Auto 1.2 % (0-4); Hematocrit 39.7 % (37.0-47.0); Hemoglobin 13.7 g/dl (12.0-16.0); Imm Gran Abs Auto 0.02 X10*3/uL (0.00-0.03); Imm Gran Pct Auto 0.3 % (0.0-0.4); Lymphocytes Absolute Auto 1.9 X10*3/uL (1.2-4.9); Lymphocytes Percent Auto 24.5 % (20-40); Mean Corpuscular HGB Conc 34.5 g/dl (31.0-35.0); Mean Corpuscular Volume 95.7 fL (80.0-98.0); Monocytes Absolute Auto 0.7 X10*3/uL (0.1-1.2); Monocytes Percent Auto 8.7 % (2-11); Neutrophils Percent Auto 64.5 % (45-73); Platelet Count 321 X10*3/uL (160-400); Red Blood Count 4.15 X10*6/uL (4.20-5.50); Red Cell Distribution Width 12.9 % (11.0-16.0); White Blood Count 7.7 X10*3/uL (4.8-10.8)
[2022-12-16 12:33] LABS: Alanine Aminotransferase 11 U/L (0-31); Albumin Level 4.6 g/dL (3.5-5.0); Alkaline Phosphatase 59 U/L (39-117); Anion Gap 13 (12-20); Aspartate Amino Transferase 14 U/L (5-31); Bilirubin Direct 0.2 mg/dL (0.0-0.5); Bilirubin Total 0.6 mg/dL (0.0-1.0); Blood Urea Nitrogen 11 mg/dL (9-16); Calcium 9.3 mg/dL (8.4-10.2); Carbon Dioxide 20 mmol/L (22-29); Chloride 111 mmol/L (96-108); Creatinine Clr Calc Pharmacy 100.4; Estimated Glomerular Filt Rate > 60; Glucose Random 91 mg/dL (60-115); Lipase 16 U/L (8-78); Magnesium 2.2 mg/dL (1.6-2.6); Potassium 4.3 mmol/L (3.3-5.1); Sodium 140 mmol/L (135-145); Total Protein 7.3 g/dL (6.5-8.0)
[2022-12-16] MEDS: 0.9 % Sodium Chloride 1,000 ML 999 ML IV (14:27)
[2022-12-16] MEDS: ondansetron HCL 4 MG/2 ML VIAL IVPUSH (14:32)
--- NOTE | 2022-12-16 14:36 | PC.NURSE ---
pt a&ox4, vss, reporting nausea/vomiting/diarrhea x 1 week, intermittent abd pain, denies any pain at this time. 20G IV placed left AC, 1 L NS running, medicated per SEP, urine sample pending collection. no new orders at this time.
[2022-12-16 14:43] LABS: HCG Quantitative < 2 mIU/mL
[2022-12-16 15:45] VITALS: BP 110/68; PULSE 71; RESP 16; TEMP 37.1; O2SAT 98
[2022-12-16 16:01] LABS: Appearance Urine Clear; Color Urine Yellow; Glucose Urine UA Negative (Negative); Leukocyte Esterase Urine Negative (Negative); Nitrite Urine Negative (Negative); PH 5.5 (5.0-9.0); Specific Gravity - Urine 1.025 (1.005-1.025); UMIC TRIGGER UACC YES; Urine Blood Moderate (2+) (Negative); Urine Ketones 40 mg/dL (Negative); Urine Protein Negative (Neg-Trace)
[2022-12-16 16:02] LABS: UPreg QC Valid YES; Urine Pregnancy NEGATIVE (NEGATIVE)
[2022-12-16 16:03] LABS: Bacteria Urine 1+ (None Seen); Hyaline Casts Urine 0-2 /LPF (0-2); WBC Urine 0-5 /HPF (0-5)
== END 2022-12-16 16:14 | disposition home or self-care (01) ==
PROVIDERS: Physician Assistant; Physician Assistant Medical; Emergency Provider Emergency Medicine; PCP Internal Medicine
DX: R11.2 Nausea with vomiting, unspecified (principal); R19.7 Diarrhea, unspecified; M54.50 Low back pain, unspecified; G89.4 Chronic pain syndrome; J45.909 Unspecified asthma, uncomplicated
CPT/HCPCS: 36415; 72100; 80048; 80076; 81001; 81003; 81025; 83690; 83735; 84702; 85025; 96361; 96374; 99284; J2405

== ENCOUNTER 2022-12-21 08:40 | Emergency (ER) | payer MEDICAID, SELFPAY ==
--- NOTE | ~2022-12-21 | CT_ITS ---
EXAMINATION: CT ABDOMEN AND PELVIS WITHOUT CONTRAST CLINICAL INFORMATION: Diffuse abdominal pain, question colitis COMPARISON: CT abdomen pelvis 09/02/2020, pelvic ultrasound 09/02/2020 TECHNIQUE: Multidetector volumetric imaging was performed from the superior aspect of the liver through the pubic symphysis. Sagittal and coronal reformatted images were obtained on the technologist's workstation. This CT examination was performed using dose optimization techniques as appropriate, variously including the following: *Automated exposure control *Adjustment of mA and/or kV according to patient size (this includes techniques or standardized protocols for targeted exams where dose is matched to indication/reason for exam; i.e. extremities or head) *Use of iterative reconstruction technique DLP: 500 mGy-cm FINDINGS: LUNG BASES: Unremarkable. ABDOMINAL AND PELVIC WALL: Small fat-containing umbilical hernia. LIVER AND BILIARY TREE: Liver is enlarged measuring 19.4 cm in span. GALLBLADDER: Unremarkable. PANCREAS: Unremarkable. SPLEEN: Unremarkable. ADRENAL GLANDS: Unremarkable. KIDNEYS AND URETERS: Unremarkable. GASTROINTESTINAL TRACT: Colonic diverticulosis without evidence of diverticulitis. Few mildly thickened loops of small bowel which can be seen in the setting of an infectious or inflammatory enteritis of clinical history is appropriate. Normal appendix. VASCULAR: Unremarkable. LYMPH NODES/PERITONEUM: No lymphadenopathy. FREE FLUID: Small volume simple free fluid in the pelvis within physiologic limits of volume. BLADDER: Unremarkable. PELVIC VISCERA: A 2 cm intermediate attenuation lesion in the in the left adnexa, unclear if this could reflect the discrete ovarian lesion or possibly a pedunculated fibroid and recommend correlation with pelvic ultrasound for further evaluation. OSSEOUS STRUCTURES: Bone island in the right sacrum. CT/CT abdomen pelvis wo IV con IMPRESSION: 1. Few mildly thickened loops of small bowel which can be seen in the setting of an infectious or inflammatory enteritis of clinical history is appropriate. 2. A 2 cm intermediate attenuation lesion in the left adnexa, unclear if this could reflect the discrete ovarian lesion or possibly a pedunculated fibroid and recommend correlation with pelvic ultrasound for further evaluation. 3. Hepatomegaly.
[2022-12-21 08:43] VITALS: BP 117/56; PULSE 100; RESP 18; TEMP 36.3; O2SAT 98; BMI 27.8
--- NOTE | 2022-12-21 09:20 | ED_ITS ---
HPI - Abdominal Pain General Chief Complaint: Abdominal Pain Stated Complaint: abd pain, constipated, vomiting Time Seen by Provider: 12/21/22 08:44 Source: patient Mode of arrival: ambulatory Limitations: no limitations History of Present Illness HPI narrative: 27 year old female with a history of chronic pain syndrome and asthma presents today with epigastric pain, nausea, vomiting and constipation. Patient was evaluated in ED 2 weeks ago and diagnosed with gastroenteritis and was discharged home with andrea. Her epigastric pain has persisted, reports a burning sensation every time she eats along with nausea and vomiting. States she is vomiting foam . Additionally reports diarrhea that has now become c onstipation. States that she has a hx of GERD however does not take medication for this. Denies fever, chills, flank pain, dysuria, hematuria. Related Data Home Medications Medication Instructions Recorded Confirmed medroxyprogesterone 150 mg/mL 150 mg IM [id number] 09/11/20 11/23/20 intramuscular suspension (Depo-Provera) Previous Rx's Medication Instructions Recorded omeprazole 20 mg capsule,delayed 20 mg PO BID #60 caps 09/06/20 release tizanidine 4 mg tablet 4 mg PO TID PRN muscle spasticity 11/23/20 #90 tabs naproxen 500 mg tablet 500 mg PO BID PRN pain #20 tabs 11/27/20 ondansetron 4 mg disintegrating 4 mg PO Q8H 3 days #9 tabs 12/16/22 tablet lorazepam 1 mg tablet (Ativan) 1 mg PO DAILY PRN anxiety #4 tabs 12/21/22 pantoprazole 40 mg granules 40 mg PO DAILY #30 ea 12/21/22 delayed-release for susp in packet (Protonix) Allergies Allergy/AdvReac Type Severity Reaction Status Date / Time cyclobenzaprine Allergy Unknown RASH Verified 12/21/22 08:47 [From FLEXERIL] Penicillins [PENICILLINS] Allergy Unknown RASH Verified 12/21/22 08:47 aloe vera [Flexall] AdvReac Intermediate n/v Verified 12/21/22 08:47 menthol [Flexall] AdvReac Intermediate n/v Verified 12/21/22 08:47 vitamin E (d-alpha AdvReac Intermediate n/v Verified 12/21/22 08:47 tocopherol) [Flexall] Review of Systems Review of Systems Yes all other systems are reviewed and are negative Constitutional: Denies chills and Denies fever(s) Cardiovascular: Denies chest pain and Denies dyspnea Respiratory: Denies dyspnea Gastrointestinal: Reports abdominal pain, Denies bloating, Reports change in stool character, Reports heartburn, Reports diarrhea, Reports nausea and Reports vomiting PMFSH Past Medical History Attestation statement: The following information was validated with the patient. Source: old records reviewed and nursing notes reviewed Medical History Acid reflux Asthma Bulging disc Chronic pain syndrome Hiatal hernia Smoker Spondylosis of lumbosacral spine without myelopathy Urinary tract infection Social History Social History Do you presently have visiting nurse or other home services: No Alcohol intake: current Alcohol intake frequency: a few times a month Second Hand Smoke Exposure: No Substance Use Type: Marijuana Advance Directives: No Advance Directives Information Provided: No Current occupational status: unemployed Physical Exam ED Vital Signs: Vital Signs - 24 hr 12/21/22 08:43 12/21/22 10:00 Temperature 97.4 F 98.4 F Pulse Rate 100 101 H Respiratory Rate 18 18 Blood Pressure 117/56 L 121/62 Pulse Oximetry 98 98 Oxygen Delivery Method Room Air Room Air BMI result Body Mass Index 27.8 Resp Effort & Inspection: normal respiratory effort and able to speak in complete sentences Auscultation: clear to auscultation bilaterally, no crackles, no rales and no rhonchi Cardio Jugular venous distension: no JVD Rate: regular rate Rhythm: regular rhythm and abnormal rhythm Heart sounds: S1 normal heart sound present, S2 normal heart sound present, no gallops, no murmurs and no rubs Peripheral pulses: Peripheral pulses 2+ throughout GI Inspection: Yes normal to inspection Palpation (GI): Soft to palpation, not firm, Tenderness to palpation present (GI) in the epigastrum, in the LLQ and in the RLQ, no guarding and not rigid Rectal Exam - Female: deferred Course Reevaluation(s) Reevaluation #1: Called to the bedside due to patients left arm swelling. Patients arm noted to be swollen. IV was infiltrated. One ring was manually removed from patients first digit. Time: 11:36 Reevaluation #2: Ct abd reviewed and shows no intrabdominal pathology. Patient visibly upset about having her rings cut off however we explained that we have no other choice than to cut them off as they could potentially cut off the circulation to her fingers leading to necrosis. Patient agreeable to having her rings cut off. We apologized to the patient. Time: 13:02 Medical Decision Making Medical Decision Making [facility] Narrative: 27 year old female presents with contined nausea, vomiting, burning epigastric pain, and constipation. Physical exam significant for diffuse abdominal tenderness, no rebound or guarding. Plan: labs, antiemetics, fluid, reexam Differential Diagnosis Differential Diagnoses: The differential diagnosis associated with the p resentation includes Likely gastroenteritis, appendicitis, cholecystitis, ectopic . Unlikely SBO, abdomen is nondistended. Unlikely perforated bowel, no guarding or rebound. Admission/Observation Consideration of admission/observation: Escalation of care including admission/observation considered Considered however CT and labs negative. Does not meet criteria for admission. Lab Data [facility] Lab Attestation statement: I reviewed the patient's lab results. 12/21/22 09:15 12/21/22 09:15 Labs: Lab Results 12/21/22 12/21/22 12/21/22 Range/Units 09:15 09:15 09:15 WBC 7.1 (4.8-10.8) X10*3/uL RBC 3.71 L (4.20-5.50) X10*6/uL Hgb 12.2 (12.0-16.0) g/dl Hct 35.4 L (37.0-47.0) % MCV 95.4 (80.0-98.0) fL MCH 32.9 (27.0-33.0) pg MCHC 34.5 (31.0-35.0) g/dl RDW 13.2 (11.0-16.0) % Plt Count 288 (160-400) X10*3/uL MPV 9.0 L (9.4-12.3) fL Immature Gran % (Auto) 0.3 (0.0-0.4) % Neut % (Auto) 68.3 (45-73) % Lymph % (Auto) 21.4 (20-40) % [place] % (Auto) 8.0 (2-11) % Eos % (Auto) 1.4 (0-4) % Baso % (Auto) 0.6 (0-2) % Lymph # (Auto) 1.5 (1.2-4.9) X10*3/uL [place] # (Auto) 0.6 (0.1-1.2) X10*3/uL Eos # (Auto) 0.1 (0.0-0.4) X10*3/uL Baso # (Auto) 0.0 (0.0-0.2) X10*3/uL Abs Immat Gran (auto) 0.02 (0.00-0.03) X10*3/uL Absolute Neuts (auto) 4.8 (2.0-8.3) x10*3/uL Absolute Nucleated RBC 0.000 (0.0-0.012) X10*3/uL Nucleated RBC % (auto) 0.0 (0.0-0.2) /100WBC Sodium 138 (135-145) mmol/L Potassium 4.1 (3.3-5.1) mmol/L Chloride 111 H (96-108) mmol/L Carbon Dioxide 18 L (22-29) mmol/L Anion Gap 13 (12-20) BUN 10 (9-16) mg/dL Creatinine 0.73 (0.5-1.4) mg/dL Estim Creat Clear Calc 111.7 Estimated GFR > 60 Random Glucose 103 (60-115) mg/dL Calcium 8.8 (8.4-10.2) mg/dL Total Bilirubin 0.2 (0.0-1.0) mg/dL AST 12 (5-31) U/L ALT 10 (0-31) U/L Alkaline Phosphatase 51 (39-117) U/L Total Protein 6.3 L (6.5-8.0) g/dL Albumin 4.0 (3.5-5.0) g/dL Lipase 28 (8-78) U/L Beta HCG, Quant < 2 mIU/mL Independent Interpretation I performed an independent interpretation of an: CT Scan Interpretation: No intrabdominal pathology. ?constipation according to our interpretation. Radiology Impression Discussion of test interpretation with radiology: I have reviewed the radiologist's reading. External Record Review External record reviewed: Inpatient record Prior ED visits Prescription Management I considered prescription management with: Pain Medication and Other (antiemetics) Medications Administered Discontinued Medications Generic Name Dose Route Start Last Admin Trade Name Jordy PRN Reason Stop Dose Admin Famotidine 20 mg 12/21/22 10:56 12/21/22 11:09 Famotidine/Pf 20 Mg/2 Ml Vial IVPUSH 12/21/22 10:57 20 mg ONCE ONE Administration Sodium Chloride 1,000 mls @ 999 mls/hr 12/21/22 09:15 12/21/22 11:39 Ns IVCONT 12/21/22 10:15 Infused .Q1H1M KALEB Infusion Sodium Chloride 1,000 mls @ 999 mls/hr 12/21/22 11:00 12/21/22 13:33 Ns IVCONT 12/21/22 12:00 Not Given .Q1H1M KALEB Lorazepam 1 mg 12/21/22 11:36 12/21/22 11:47 Lorazepam 1 Mg Tablet PO 12/21/22 11:37 1 mg ONCE ONE Administration Metoclopramide HCl 10 mg 12/21/22 09:03 12/21/22 09:37 Metoclopramide Hcl 10 Mg/2 Ml Vial IVPUSH 12/21/22 09:04 10 mg ONCE ONE Administration Morphine Sulfate 4 mg 12/21/22 10:56 12/21/22 11:09 Morphine Sulfate 10 Mg/Ml Cartridge IVPUSH 12/21/22 10:57 4 mg ONCE ONE Administration Protocol Discharge Plan Discharge Clinical Impression: Abdominal pain, IV infiltration Patient Disposition: Home, Self-Care Instructions: Abdominal Pain (ED), IV Infiltration (ED) Additional Instructions: Follow up with PCP. Will will provide you with a gastroenterologit if pain continues. Prescriptions: New pantoprazole [Protonix] [address] for susp in packet 40 mg PO DAILY Qty: 30 0RF lorazepam [Ativan] 1 mg tablet 1 mg PO DAILY PRN (Reason: anxiety) Qty: 4 0RF No Action omeprazole 20 mg capsule,delayed release(DR/EC) 20 mg PO BID Qty: 60 1RF naproxen 500 mg tablet 500 mg PO BID PRN (Reason: pain) Qty: 20 0RF ondansetron 4 mg tablet,disintegrating 4 mg PO Q8H 3 Days Qty: 9 0RF medroxyprogesterone [Depo-Provera] 150 mg/mL suspension 150 mg IM [id number] tizanidine 4 mg tablet 4 mg PO TID PRN (Reason: muscle spasticity) Qty: 90 6RF Rx Instructions: Patient may take 1 or 2 pills at night if it will help her to rest at night. She can also divide pills if the sedation from the pill take prevents her from functioning normally. Referrals: Mandi Connors MD [Physician] - 5 days Stand Alone Forms: Work/School Release Interventions: ED Discharge Assessment Last Done: 12/21/22 13:36 Discharge Date/Time: 12/21/22 13:36
[2022-12-21 09:22] LABS: Basophils Percent Auto 0.6 % (0-2); Eosinophils Absolute Auto 0.1 X10*3/uL (0.0-0.4); Eosinophils Percent Auto 1.4 % (0-4); Hematocrit 35.4 % (37.0-47.0); Hemoglobin 12.2 g/dl (12.0-16.0); Imm Gran Abs Auto 0.02 X10*3/uL (0.00-0.03); Imm Gran Pct Auto 0.3 % (0.0-0.4); Lymphocytes Absolute Auto 1.5 X10*3/uL (1.2-4.9); Lymphocytes Percent Auto 21.4 % (20-40); MANUAL DIFF FLAG NO; Mean Corpuscular HGB Conc 34.5 g/dl (31.0-35.0); Mean Corpuscular Hemoglobin 32.9 pg (27.0-33.0); Mean Corpuscular Volume 95.4 fL (80.0-98.0); Monocytes Absolute Auto 0.6 X10*3/uL (0.1-1.2); Neutrophils Absolute Auto 4.8 x10*3/uL (2.0-8.3); Neutrophils Percent Auto 68.3 % (45-73); Platelet Count 288 X10*3/uL (160-400); Red Blood Count 3.71 X10*6/uL (4.20-5.50); Red Cell Distribution Width 13.2 % (11.0-16.0); White Blood Count 7.1 X10*3/uL (4.8-10.8)
[2022-12-21] MEDS: Metoclopramide HCl 10 MG/2 ML VIAL IVPUSH (09:37)
[2022-12-21] MEDS: 0.9 % Sodium Chloride 1,000 ML 999 ML IVCONT (09:38)
--- NOTE | 2022-12-21 09:40 | PC.NURSE ---
upon pushing medication patient was c/o pain during ivp, this nurse checked the iv site which was patient- there was good blood return, IVF running well-pt had no pain with fluids running only with the IVP. this nurse offered a new IV site and pt refused at this time, will continue to monitor.
--- NOTE | 2022-12-21 09:42 | PC.NURSE ---
patient a&ox3, iv inserted by provider and their student, patient c/o n/v/d 12/14 pain, ivf started per order, pt medicated with nausea medications per order, call dailey within reach, will continue to monitor.
[2022-12-21 09:48] LABS: HCG Quantitative < 2 mIU/mL
[2022-12-21 09:50] LABS: Alanine Aminotransferase 10 U/L (0-31); Alkaline Phosphatase 51 U/L (39-117); Anion Gap 13 (12-20); Aspartate Amino Transferase 12 U/L (5-31); Bilirubin Total 0.2 mg/dL (0.0-1.0); Blood Urea Nitrogen 10 mg/dL (9-16); Calcium 8.8 mg/dL (8.4-10.2); Carbon Dioxide 18 mmol/L (22-29); Chloride 111 mmol/L (96-108); Creatinine Clr Calc Pharmacy 111.7; Estimated Glomerular Filt Rate > 60; Glucose Random 103 mg/dL (60-115); Lipase 28 U/L (8-78); Potassium 4.1 mmol/L (3.3-5.1); Sodium 138 mmol/L (135-145); Total Protein 6.3 g/dL (6.5-8.0)
[2022-12-21 10:00] VITALS: BP 121/62; PULSE 101; RESP 18; TEMP 36.9; O2SAT 98
[2022-12-21] MEDS: Morphine Sulfate 10 MG/ML CARTRIDGE 4 MG IVPUSH (11:09)
[2022-12-21] MEDS: Famotidine/PF 20 MG/2 ML VIAL IVPUSH (11:09)
--- NOTE | 2022-12-21 11:38 | PC.NURSE ---
pt reporting left hand swelling with increased pain with IV push medication, IV infiltrated, IV pulled.
[2022-12-21] MEDS: LORazepam 1 MG TABLET PO (11:47)
--- NOTE | 2022-12-21 13:34 | PC.NURSE ---
ring removal consent signed, ring cutter used to remove two ring from left 3rd and 4th digit, pt tolerated well.
== END 2022-12-21 13:36 | disposition home or self-care (01) ==
PROVIDERS: Emergency Provider Emergency Medicine; PCP Internal Medicine
DX: R10.13 Epigastric pain (principal); M79.89 Other specified soft tissue disorders; T80.89XA Other complications following infusion, transfusion and therapeutic injection, initial encounter; Y63.0 Excessive amount of blood or other fluid given during transfusion or infusion; Y92.230 Patient room in hospital as the place of occurrence of the external cause
CPT/HCPCS: 36415; 74176; 80053; 83690; 84702; 85025; 96361; 96374; 96375; 99284; J2270; J2765